=== PATIENT | female | born 1985 | race Caucasian/White ===

== ENCOUNTER 2020-07-25 21:46 | Emergency (ER) | payer SELFPAY ==
[2020-07-25 22:01] VITALS: BP 190/102; PULSE 71; RESP 18; TEMP 36.5; O2SAT 96; BMI 43.7
--- NOTE | 2020-07-25 22:25 | W.ED.DENTAL ---
HPI - Dental/Oral General: Chief complaint: Dental/Oral Stated complaint: Dental/Oral pain Time Seen by Provider: 07/25/20 22:18 History of Present Illness: HPI Narrative: Right upper molar longstanding history dental caries MD Complaint: tooth pain Teeth map: 1. Onset (ago): day(s) Duration: constant Severity: moderate Severity scale (1-10): 5 Relieving factors: nothing Context: history of dental caries Associated symptoms: Reports no associated symptoms; Denies fever(s) Review of Systems Narrative: No complaints of jaw problems Const: Denies: fever(s) or chills ENMT: Reports: other (Dental pain) Psych: Denies: anxiety or depression PFSH ED PFSH: Social History Smoking and tobacco status: current every day smoker Alcohol intake: never Physical Exam Const: COMMON NORMALS: no acute distress HENMT: TEETH & GINGIVA IMAGES: 1. Pain no swelling Psych: COMMON NORMALS: mental status grossly normal Course Vital Signs: Vital signs: Vital Signs Temperature 97.7 F 07/25/20 22:01 Pulse Rate 71 07/25/20 22:01 Respiratory Rate 18 07/25/20 22:01 Blood Pressure 190/102 07/25/20 22:01 Pulse Oximetry 96 07/25/20 22:01 Discharge Plan Discharge Patient Disposition: Home Clinical Impression: Toothache Condition: Stable Prescriptions: New Keflex 500 mg capsule 500 mg PO TID 7 Days Qty: 21 RF: 0 ibuprofen 600 mg tablet 600 mg PO QID PRN (Reason: pain) Qty: 20 RF: 0 No Action cephalexin [Keflex] 500 mg capsule 500 mg PO Q12H 10 Days Qty: 20 RF: 0 prednisone 20 mg tablet 20 mg PO DAILY 5 Days Qty: 10 RF: 0 methadone 10 mg tablet 5 mg PO ONCE RF: 0 ibuprofen 800 mg tablet 800 mg PO TID PRN (Reason: pain) Qty: 15 RF: 0 Discharge Orders: Discharge Order (Routine); Ordered 07/25/20 Ordered By: Thor Espino Referrals: , [Primary Care Provider] - Discharge Diet: Usual diet Discharge Activity: Increase activity as tolerated Patient Instructions: Dental Caries (ED) Activity Restrictions/Additional Instructions: Follow-up with medical provider as directed. Take medications as prescribed. Return to the ER or your medical provider if condition worsens. Please read and understand discharge instructions. If any questions ask please. Coding Level of Care Code ED Lead Database Administrator for Rodney Lagunas
[2020-07-25] MEDS: cephALEXin 500 mg Capsule PO (22:37)
[2020-07-25] MEDS: ibuprofen 600 mg Tablet PO (22:37)
== END 2020-07-25 22:40 | disposition home or self-care (01) ==
PROVIDERS: Emergency Provider Nurse Practitioner Family
DX: K08.89 Other specified disorders of teeth and supporting structures (principal); F17.210 Nicotine dependence, cigarettes, uncomplicated
CPT/HCPCS: 12345; 99282; 99283

== ENCOUNTER 2020-10-25 22:26 | Emergency (ER) | payer MEDICAID, SELFPAY ==
[2020-10-25 22:35] VITALS: BP 155/85; PULSE 78; RESP 18; TEMP 36.4; O2SAT 97; BMI 47.2
--- NOTE | 2020-10-25 23:42 | ECG_ITS ---
[facility] Test Date: 2020-10-25 Pat Name: Donita Ventura Department: Room: Gender: Female Densitometrist: : 1985 Requested By: Tulio Jaramillo Order Number: [id number] Morgan MD: Sheela Teran M.D. Measurements Intervals [place] Rate: 81 P: 32 UT: 150 QRS: 7 QRSD: 84 T: 8 QT: 311 QTc: 362 Interpretive Statements SINUS RHYTHM LOW QRS VOLTAGE IN PRECORDIAL LEADS [QRS DEFLECTION < 1.0 mV IN CHEST LEADS] POSSIBLE ANTERIOR MYOCARDIAL INFARCTION , PROBABLY OLD [30 ms Q WAVE IN V3/V4, OR R < 0.2 mV IN V4] Compared to ECG 07/14/2017 23:51:17 Sinus arrhythmia no longer present Myocardial infarct finding still present Electronically Signed On 10-26-2020 20:24:41 HONEYCOM[employer] DECAPPER by Sheela Teran M.D. [email or web address].[employer]/store/NU/[id number] f
[2020-10-25 23:56] VITALS: BP 171/74; PULSE 87; RESP 18; O2SAT 96
--- NOTE | 2020-10-25 23:57 | W.ED.ARRPALP ---
HPI - Arrhythmia/Palpitations General: Chief Complaint: Arrhythmia/Palpitations Stated Complaint: SOB, fluttering in chest, faint feeling Time Seen by Provider: 10/25/20 23:52 Source: patient Mode of arrival: ambulatory Limitations: no limitations History of Present Illness: HPI narrative: 35-year-old female states that starting today at 230 she has had episodes of feeling like she is having palpitations along with some shortness of breath. Patient states she felt dizzy did not pass out. She denies any chest pain. States she feels improved currently. She denies any worsening improving factors. No history of lung or heart issues. Associated symptoms: Deny nausea or vomiting Review of Systems Const: Denies: fever(s), chills, body aches or change in appetite Eyes: Denies: blurry vision or eye discomfort ENMT: Denies: throat pain or dental pain Card: Reports: palpitations; Denies: chest pain Resp: Reports: dyspnea GI: Denies: abdominal pain, nausea, vomiting or diarrhea : Denies: dysuria Musc: Denies: neck pain or back pain Skin/Breast: Denies: rash Neuro: Denies: headache(s) Psych: Denies: depression Soham/Lymph: Denies: easy bruising All/Imm: Denies: urticaria PFSH ED PFSH: Social History Smoking and tobacco status: current every day smoker Alcohol intake: never Female Reproductive History: Date of last menstrual period: 10/15/20 Physical Exam Const: COMMON NORMALS: no acute distress, patient oriented x3 and healthy appearing HENMT: COMMON NORMALS: normocephalic and atraumatic HEAD & SCALP: normocephalic and atraumatic Eye: COMMON NORMALS: Equal, round and reactive pupils present and EOMs intact bilaterally PUPIL: Yes Equal, round and reactive pupils present Neck/C-Spine: COMMON NORMALS: full ROM and supple Chest: COMMONS NORMALS: normal inspection of the chest and normal palpation of entire chest wall Resp: COMMON NORMALS: normal respiratory effort, No retractions, No use of accessory muscles and clear to auscultation bilaterally AUSCULTATION: clear to auscultation bilaterally Cardio: COMMON NORMALS: regular rate, regular rhythm and No murmurs present (Cardio) RATE: regular rate RHYTHM: regular rhythm GI: COMMON NORMALS: Normal to inspection, nondistended, normoactive bowel sounds present, Soft to palpation, non-tender and no masses PALPATION: Yes Soft to palpation Extremity: COMMON NORMALS: normal to inspection and full ROM Neuro: COMMON NORMALS: patient oriented x3, moves all extremities and no focal motor deficits Psych: COMMON NORMALS: mental status grossly normal, Normal thought process present and cooperative THOUGHT PROCESS: Normal thought process present Skin: COMMON NORMALS: no rashes or lesions noted and no wounds GENERAL SKIN EXAM: no rashes or lesions noted Course Vital Signs: Vital signs: Vital Signs Temperature 97.5 F L 10/25/20 22:35 Pulse Rate 71 10/26/20 02:30 Respiratory Rate 12 10/26/20 02:30 Blood Pressure 105/64 10/26/20 02:30 Pulse Oximetry 93 10/26/20 02:30 MDM - Arrhythmia/Palpitations MDM Narrative: Medical decision making narrative: Donita presents here with palpitations along with some intermittent dyspnea. She has been well-appearing here and asymptomatic. Patient's D-dimer is negative and no signs of pulmonary embolism. Her initial repeat troponins are negative. She states she has had a lot of stress anxiety and this could contribute. She is to follow-up with PCP in 2 to 4 days and return if worsening. She understands and agrees to plan. Lab Data: Labs: Lab Results 10/25/20 10/25/20 10/25/20 Range/Units 00:05 00:05 00:05 WBC 8.3 (4.0-10.0) 10^3/ uL RBC 4.92 (4.1-5.3) 10^6/u L Hgb 10.3 L (11.5-15.3) g/dL Hct 36.1 L (37.0-47.0) % MCV 73.4 L (81-99) fL MCH 20.9 L (28.0-34.0) pg MCHC 28.5 L (30.0-36.0) g/dL RDW 19.0 H (12.1-15.1) % Plt Count 360 (130-400) 10^3/c mm MPV 9.6 (7.4-10.4) fL Neut % (Auto) 65.1 % Lymph % (Auto) 20.7 % [place] % (Auto) 9.2 % Eos % (Auto) 4.0 % Baso % (Auto) 0.5 % Neut # (Auto) 5.37 (1.8-7.7) 10^3/u L Lymph # (Auto) 1.7 (0.8-4.8) 10^3/u L [place] # (Auto) 0.8 (0.2-0.9) 10^3/u L Eos # (Auto) 0.3 (0.0-0.8) 10^3/u L Baso # (Auto) 0.0 (0.0-0.1) 10^3/u L Nucleated RBC % (a uto) 0 % Nucleated RBCs # 0.0 /100WBC D-Dimer 0.37 (0-0.59) ug/mIFE U Sodium 138 (136-145) mmol/L Potassium 4.0 (3.5-5.1) mmol/L Chloride 100 (98-107) mmol/L Carbon Dioxide 29 (22-29) mmol/L Anion Gap 13.0 (5-19) BUN 9 (6-20) mg/dL Creatinine 0.5 (0.5-0.9) mg/dL GFR Calculation 139.6 H (90-130) mL/min Glucose 108 (65-115) mg/dL Calculated Osmolal ity 285 (285-295) mOsm/k g Calcium 8.9 (8.5-10.5) mg/dL Total Bilirubin 0.2 (0.15-1.2) mg/dL AST 13 (0-32) U/L ALT 19 (0-33) U/L Alkaline Phosphata se 78 (35-105) IU/L Troponin T Baselin e (0-10) ng/L Troponin T 120 Min [place] band (0-10) ng/L Delta Troponin T (0-10) ABS# Total Protein 6.9 (6.6-8.7) g/dL Albumin 3.6 (3.5-5.2) g/dL Globulin 3.3 (1.3-4.6) g/dL 10/25/20 10/26/20 Range/Units 00:05 01:55 WBC (4.0-10.0) 10^3/ uL RBC (4.1-5.3) 10^6/u L Hgb (11.5-15.3) g/dL Hct (37.0-47.0) % MCV (81-99) fL MCH (28.0-34.0) pg MCHC (30.0-36.0) g/dL RDW (12.1-15.1) % Plt Count (130-400) 10^3/c mm MPV (7.4-10.4) fL Neut % (Auto) % Lymph % (Auto) % [place] % (Auto) % Eos % (Auto) % Baso % (Auto) % Neut # (Auto) (1.8-7.7) 10^3/u L Lymph # (Auto) (0.8-4.8) 10^3/u L [place] # (Auto) (0.2-0.9) 10^3/u L Eos # (Auto) (0.0-0.8) 10^3/u L Baso # (Auto) (0.0-0.1) 10^3/u L Nucleated RBC % (a uto) % Nucleated RBCs # /100WBC D-Dimer (0-0.59) ug/mIFE U Sodium (136-145) mmol/L Potassium (3.5-5.1) mmol/L Chloride (98-107) mmol/L Carbon Dioxide (22-29) mmol/L Anion Gap (5-19) BUN (6-20) mg/dL Creatinine (0.5-0.9) mg/dL GFR Calculation (90-130) mL/min Glucose (65-115) mg/dL Calculated Osmolal ity (285-295) mOsm/k g Calcium (8.5-10.5) mg/dL Total Bilirubin (0.15-1.2) mg/dL AST (0-32) U/L ALT (0-33) U/L Alkaline Phosphata se (35-105) IU/L Troponin T Baselin e 13 H (0-10) ng/L Troponin T 120 Min [place] band 11.94 H (0-10) ng/L Delta Troponin T 1.06 (0-10) ABS# Total Protein (6.6-8.7) g/dL Albumin (3.5-5.2) g/dL Globulin (1.3-4.6) g/dL Imaging Data^: CXR: Attestation: I personally reviewed and interpreted this imaging study as follows: My impression: no acute abnormality EKG Data^: EKG 1: Attestation: I personally reviewed and interpreted this EKG as follows: EKG interpretation date: 10/26/20 EKG interpretation time: 23:56 Interpretation: nsr hr [address] or t wave abnormalities qrs 84 qtc 348 EKG 2: Attestation: I personally reviewed and interpreted this EKG as follows: EKG interpretation date: 10/26/20 EKG interpretation time: 02:22 Interpretation: nsr hr [address] or t wave abnormalities qrs 64 qtc 378 Discharge Plan Discharge Patient Disposition: Home Clinical Impression: Palpitations, Shortness of breath Condition: Stable Prescriptions: No Action cephalexin [Keflex] 500 mg capsule 500 mg PO Q12H 10 Days Qty: 20 RF: 0 prednisone 20 mg tablet 20 mg PO DAILY 5 Days Qty: 10 RF: 0 methadone 10 mg tablet 5 mg PO ONCE RF: 0 ibuprofen 800 mg tablet 800 mg PO TID PRN (Reason: pain) Qty: 15 RF: 0 ibuprofen 600 mg tablet 600 mg PO QID PRN (Reason: pain) Qty: 20 RF: 0 Discharge Orders: Discharge ED (Routine); Ordered 10/26/20 Ordered By: Tulio Jaramillo Discharge Diet: Advance as tolerated Discharge Activity: Resume usual activity Patient Instructions: Palpitations (ED) Coding Level of Care Code ED Medicine And Health Service Manager for Chg Fwd Exam Comprehensive
--- NOTE | 2020-10-26 | PC.NURSE ---
EKG done at 2355 and shown to ER doctor
[2020-10-26 00:12] VITALS: BP 115/65; PULSE 60; RESP 12; O2SAT 92
--- NOTE | 2020-10-26 00:21 | XR_ITS ---
WS: [id number] Portable AP upright chest, 10/26/2020 Clinical Data: cp Comparison: PA and lateral chest, 12/15/2015. Findings: No nodules, masses or effusions are seen. The heart is normal. The pulmonary vascularity is not increased. No pneumonia or pneumothorax is seen. XR/XR chest 1V portable [id number] Impression: Negative chest.
[2020-10-26 00:53] LABS: Basophils % 0.5 %; Eosinophils # 0.3 10^3/uL (0.0-0.8); Hematocrit 36.1 % (37.0-47.0); Hemoglobin 10.3 g/dL (11.5-15.3); Lymphocytes # 1.7 10^3/uL (0.8-4.8); Lymphocytes % 20.7 %; Mean Corpuscular HGB Conc 28.5 g/dL (30.0-36.0); Mean Corpuscular Hemoglobin 20.9 pg (28.0-34.0); Mean Corpuscular Volume 73.4 fL (81-99); Mean Platelet Volume 9.6 fL (7.4-10.4); Monocytes # 0.8 10^3/uL (0.2-0.9); Monocytes % 9.2 %; Neutrophils # 5.37 10^3/uL (1.8-7.7); Neutrophils % 65.1 %; Nucleated Red Blood Cells % 0 %; Platelet Count 360 10^3/cmm (130-400); Red Blood Count 4.92 10^6/uL (4.1-5.3); White Blood Count 8.3 10^3/uL (4.0-10.0)
--- NOTE | 2020-10-26 01:42 | ECG_ITS ---
[facility] Test Date: 2020-10-26 Pat Name: Donita Ventura Department: Room: Gender: Female General Ophthalmologist: : 1985 Requested By: Tulio Jaramillo Order Number: [id number] Morgan MD: Sheela Teran M.D. Measurements Intervals [place] Rate: 63 P: 39 ID: [id number] QRS: 10 QRSD: 64 T: 5 QT: 371 QTc: 381 Interpretive Statements SINUS RHYTHM LOW QRS VOLTAGE IN PRECORDIAL LEADS [QRS DEFLECTION < 1.0 mV IN CHEST LEADS] ANTEROSEPTAL MYOCARDIAL INFARCTION , PROBABLY OLD [40+ ms Q WAVE IN V1-V4] Compared to ECG 07/14/2017 23:51:17 Sinus arrhythmia no longer present Myocardial infarct finding still present Electronically Signed On 10-26-2020 20:30:24 CAR SALESPERSON by Sheela Teran M.D. [id number]
[2020-10-26 01:46] LABS: Troponin(5th) Baseline 13 ng/L (0-10)
[2020-10-26 01:47] LABS: Alanine Aminotransferase 19 U/L (0-33); Albumin Level 3.6 g/dL (3.5-5.2); Alkaline Phosphatase 78 IU/L (35-105); Aspartate Amino Transferase 13 U/L (0-32); Blood Urea Nitrogen 9 mg/dL (6-20); Calcium 8.9 mg/dL (8.5-10.5); Carbon Dioxide 29 mmol/L (22-29); Chloride 100 mmol/L (98-107); Globulin 3.3 g/dL (1.3-4.6); Glomerular Filtration Rate 139.6 mL/min (90-130); Glucose 108 mg/dL (65-115); Osmolality Calculated 285 mOsm/kg (285-295); Sodium 138 mmol/L (136-145); Total Bilirubin 0.2 mg/dL (0.15-1.2); Total Protein 6.9 g/dL (6.6-8.7)
[2020-10-26 02:30] VITALS: BP 105/64; PULSE 71; RESP 12; O2SAT 93
[2020-10-26 02:30] LABS: Troponin 5 2HR 11.94 ng/L (0-10)
[2020-10-26 02:41] LABS: Troponin 5 2HR Delta 1.06 ABS# (0-10)
[2020-10-26 03:02] LABS: D Dimer 0.37 ug/mIFEU (0-0.59)
[2020-10-26 03:34] VITALS: BP 113/57; PULSE 65; RESP 16; O2SAT 98
== END 2020-10-26 03:35 | disposition home or self-care (01) ==
PROVIDERS: Emergency Provider Emergency Medicine
DX: R00.2 Palpitations (principal); R06.02 Shortness of breath; F17.210 Nicotine dependence, cigarettes, uncomplicated
CPT/HCPCS: 12345; 36415; 71045; 80053; 84484; 85025; 85378; 93005; 99282; 99283

== ENCOUNTER 2020-11-18 08:15 | Emergency (ER) | payer MEDICAID, SELFPAY ==
[2020-11-18 08:21] VITALS: BP 155/104; PULSE 81; RESP 18; TEMP 36.9; O2SAT 100; BMI 46.3
--- NOTE | 2020-11-18 08:39 | W.ED.PREGNAN ---
Documented by User: Gómez Patel DO 11/24/20 06:16 HPI - General: Chief complaint: Urogenital-Female Stated complaint: POSS MISCARRIAGE Time Seen by Provider: 11/18/20 08:16 History of Present Illness: HPI Narrative: 35-year-old female comes in complaining of some vaginal spotting. She had a test yesterday that was positive patient previously had a first trimester miscarriage. She has not had any dysuria urgency or frequency. She does not have any active bleeding. MD Complaint: vaginal bleeding Onset (ago): hour(s) Severity: mild Relieving factors: none Exacerbating factors: none Vaginal bleeding: light Date of Last Menstrual Period: 10/15/20 Associated symptoms: Reports vaginal bleeding; Deny abdominal pain, dyspareunia, dysuria, headache(s), malaise, nausea, rash, seizures, short of breath, syncope, vaginal discharge, visual changes, vomiting or weakness Review of Systems Const: Denies: malaise ENMT: Denies: throat pain, ear or mastoid pain, nasal discharge or nasal congestion Card: Denies: syncope Resp: Denies: dyspnea, productive cough or non-productive cough GI: Denies: abdominal pain, nausea or vomiting : Denies: dysuria, vaginal discharge or dyspareunia Skin/Breast: Denies: rash or pruritus Neuro: Denies: headache(s) PFSH ED PFSH: Family History Father CAD (coronary artery disease) Breast cancer Clotting disorder Diabetes Hyperlipidemia Hypertension Stroke Mother Cancer lung cancer Family/Other Family history of thyroid problem paternal aunt Denies family history of Ovarian cyst Chronic kidney disease (CKD) Anesthesia complication Bleeding disorder Social History Smoking and tobacco status: current every day smoker Alcohol intake: never Female Reproductive History: Date of last menstrual period: 10/15/20 Physical Exam Const: COMMON NORMALS: no acute distress GENERAL APPEARANCE: cooperative and comfortable ORIENTATION/CONSCIOUSNESS: Yes awake, Yes oriented to person, Yes oriented to place and Yes oriented to time HENMT: COMMON NORMALS: normocephalic, atraumatic and hearing grossly normal bilaterally HEAD & SCALP: normocephalic and atraumatic Neck/C-Spine: COMMON NORMALS: no JVD Resp: COMMON NORMALS: normal respiratory effort, No retractions, No use of accessory muscles and clear to auscultation bilaterally AUSCULTATION: clear to auscultation bilaterally Cardio: COMMON NORMALS: no JVD, regular rate, regular rhythm and No murmurs present (Cardio) RATE: regular rate RHYTHM: regular rhythm GI: COMMON NORMALS: Soft to palpation and No hepatosplenomegaly present AUSCULTATION: Yes normoactive bowel sounds PALPATION: Yes Soft to palpation, No Tenderness to palpation present (GI), No Guarding due to palpation present (GI) and Yes No hepatosplenomegaly present : SPECULUM EXAM - VAGINA: Yes vaginal bleeding OB/EXTERNAL & SPECULUM: vaginal bleeding Extremity: COMMON NORMALS: normal to inspection, capillary refill normal, no clubbing, cyanosis or edema, no calf tenderness and no pedal edema Neuro: SENSORIUM/ORIENTATION: Yes oriented to person, Yes oriented to place and Yes oriented to time Skin: COMMON NORMALS: no rashes or lesions noted GENERAL SKIN EXAM: no rashes or lesions noted Course Vital Signs: Vital signs: Vital Signs Temperature 98.4 F 11/18/20 08:21 Pulse Rate 81 11/18/20 08:21 Respiratory Rate 18 11/18/20 08:21 Blood Pressure 155/104 11/18/20 08:21 Pulse Oximetry 100 11/18/20 08:21 MDM - OB/Uterine Contractions MDM Narrative: Medical decision making narrative: Beta-hCG 9000. Patient is only having intermittent bleeding no pain. We will have her follow-up later this week for repeat beta-hCG if she has any worsening or change of symptoms or develops any pelvic pain return to the emergency room immediately. Lab Data: Labs: Lab Results 11/18/20 11/18/20 11/18/20 Range/Units 09:54 09:54 09:54 WBC 9.0 (4.0-10.0) 10^3/ uL RBC 4.67 (4.1-5.3) 10^6/u L Hgb 9.8 L (11.5-15.3) g/dL Hct 33.7 L (37.0-47.0) % MCV 72.2 L (81-99) fL MCH 21.0 L (28.0-34.0) pg MCHC 29.1 L (30.0-36.0) g/dL RDW 19.0 H (12.1-15.1) % Plt Count 429 H (130-400) 10^3/c mm MPV 9.2 (7.4-10.4) fL Neut % (Auto) 69.1 % Lymph % (Auto) 18.3 % [place] % (Auto) 7.3 % Eos % (Auto) 3.9 % Baso % (Auto) 0.6 % Neut # (Auto) 6.26 (1.8-7.7) 10^3/u L Lymph # (Auto) 1.7 (0.8-4.8) 10^3/u L [place] # (Auto) 0.7 (0.2-0.9) 10^3/u L Eos # (Auto) 0.4 (0.0-0.8) 10^3/u L Baso # (Auto) 0.1 (0.0-0.1) 10^3/u L Nucleated RBC % (a uto) 0 % Nucleated RBCs # 0.0 /100WBC Sodium 136 (136-145) mmol/L Potassium 4.0 (3.5-5.1) mmol/L Chloride 100 (98-107) mmol/L Carbon Dioxide 25 (22-29) mmol/L Anion Gap 15.0 (5-19) BUN 8 (6-20) mg/dL Creatinine 0.6 (0.5-0.9) mg/dL GFR Calculation 113.1 (90-130) mL/min Glucose 139 H (65-115) mg/dL Calculated Osmolal ity 283 L (285-295) mOsm/k g Calcium 9.0 (8.5-10.5) mg/dL Ser , Enmanuel i-Qnt 9167.00 mIU/mL Blood Type O Positive Rho(D) Type Positive Discharge Plan Discharge Patient Disposition: Home Clinical Impression: Threatened miscarriage in early Condition: Stable Prescriptions: No Action methadone 40 mg tablet,soluble 155 mg PO DAILY RF: 0 Discharge Orders: Discharge ED (Routine); Ordered 11/18/20 Ordered By: Gómez Patel Discharge Diet: Usual diet Discharge Activity: Resume usual activity Patient Instructions: Opioid Safety Activity Restrictions/Additional Instructions: With your primary care doctor for repeat blood work in 3 to 4 days. Coding Level of Care Code ED Vegetable I Farmworker for Chg Fwd Exam Problem Focused Documented by User: [email or web address] Monzon 11/18/20 18:13 HPI - General: Chief complaint: Urogenital-Female Stated complaint: POSS MISCARRIAGE Time Seen by Provider: 11/18/20 08:16 History of Present Illness: Associated symptoms: Deny vaginal bleeding PFSH ED PFSH: Family History Father CAD (coronary artery disease) Breast cancer Clotting disorder Diabetes Hyperlipidemia Hypertension Stroke Mother Cancer lung cancer Family/Other Family history of thyroid problem paternal aunt Denies family history of Ovarian cyst Chronic kidney disease (CKD) Anesthesia complication Bleeding disorder Social History Smoking and tobacco status: current every day smoker Alcohol intake: never Physical Exam : COMMON NORMALS: Yes normal external appearance, Yes normal appearance of the vagina and Yes No adnexal tenderness BLADDER/KIDNEY EXAM: Yes bladder normal to palpation EXTERNAL FEMALE EXAM: Yes normal appearance of the urethra, No Inguinal lymphadenopathy, No externally tender, No external swelling and No laceration SPECULUM EXAM - VAGINA: No foreign body, No vaginal bleeding, No tissue present in vagina and No Vaginal discharge present SPECULUM EXAM - CERVIX: Yes Cervical os open (with mucoid discharge/brown discoloration, not tissue), Yes Cervical bleeding (scant, dark brown), No Cervical lesion present and Yes Cervical tenderness present BIMANUAL EXAM - VAGINA & UTERUS: Yes Cervical tenderness present, Yes bladder normal to palpation, Yes uterine size normal, Yes consistency normal and Yes non-tender BIMANUAL EXAM - ADNEXA, OTHER: Yes normal adnexae and Yes mobile OB/EXTERNAL & SPECULUM: Cervical os open (with mucoid discharge/brown discoloration, not tissue); no foreign bodies, no tissue noted in vagina and vaginal bleeding Course Vital Signs: Vital signs: Vital Signs Temperature 98.4 F 11/18/20 08:21 Pulse Rate 81 11/18/20 08:21 Respiratory Rate 18 11/18/20 08:21 Blood Pressure 155/104 11/18/20 08:21 Pulse Oximetry 100 11/18/20 08:21 MDM - OB/Uterine Contractions Lab Data: Labs: Lab Results 11/18/20 11/18/20 11/18/20 Range/Units 09:54 09:54 09:54 WBC 9.0 (4.0-10.0) 10^3/ uL RBC 4.67 (4.1-5.3) 10^6/u L Hgb 9.8 L (11.5-15.3) g/dL Hct 33.7 L (37.0-47.0) % MCV 72.2 L (81-99) fL MCH 21.0 L (28.0-34.0) pg MCHC 29.1 L (30.0-36.0) g/dL RDW 19.0 H (12.1-15.1) % Plt Count 429 H (130-400) 10^3/c mm MPV 9.2 (7.4-10.4) fL Neut % (Auto) 69.1 % Lymph % (Auto) 18.3 % [place] % (Auto) 7.3 % Eos % (Auto) 3.9 % Baso % (Auto) 0.6 % Neut # (Auto) 6.26 (1.8-7.7) 10^3/u L Lymph # (Auto) 1.7 (0.8-4.8) 10^3/u L [place] # (Auto) 0.7 (0.2-0.9) 10^3/u L Eos # (Auto) 0.4 (0.0-0.8) 10^3/u L Baso # (Auto) 0.1 (0.0-0.1) 10^3/u L Nucleated RBC % (a uto) 0 % Nucleated RBCs # 0.0 /100WBC Sodium 136 (136-145) mmol/L Potassium 4.0 (3.5-5.1) mmol/L Chloride 100 (98-107) mmol/L Carbon Dioxide 25 (22-29) mmol/L Anion Gap 15.0 (5-19) BUN 8 (6-20) mg/dL Creatinine 0.6 (0.5-0.9) mg/dL GFR Calculation 113.1 (90-130) mL/min Glucose 139 H (65-115) mg/dL Calculated Osmolal ity 283 L (285-295) mOsm/k g Calcium 9.0 (8.5-10.5) mg/dL Ser , Enmanuel i-Qnt 9167.00 mIU/mL Blood Type O Positive Rho(D) Type Positive Discharge Plan Discharge Patient Disposition: Home Clinical Impression: Threatened miscarriage in early Condition: Stable Prescriptions: No Action methadone 40 mg tablet,soluble 155 mg PO DAILY RF: 0 Discharge Orders: Discharge ED (Routine); Ordered 11/18/20 Ordered By: Gómez Patel Discharge Diet: Usual diet Discharge Activity: Resume usual activity Patient Instructions: Opioid Safety Activity Restrictions/Additional Instructions: With your primary care doctor for repeat blood work in 3 to 4 days. Coding Level of Care Code ED Vegetable I Farmworker for Rodney Lagunas Exam Problem Focused
[2020-11-18 10:10] LABS: Basophils # 0.1 10^3/uL (0.0-0.1); Basophils % 0.6 %; Eosinophils # 0.4 10^3/uL (0.0-0.8); Eosinophils % 3.9 %; Hematocrit 33.7 % (37.0-47.0); Hemoglobin 9.8 g/dL (11.5-15.3); Lymphocytes # 1.7 10^3/uL (0.8-4.8); Lymphocytes % 18.3 %; Mean Corpuscular HGB Conc 29.1 g/dL (30.0-36.0); Mean Corpuscular Volume 72.2 fL (81-99); Mean Platelet Volume 9.2 fL (7.4-10.4); Monocytes # 0.7 10^3/uL (0.2-0.9); Monocytes % 7.3 %; Neutrophils # 6.26 10^3/uL (1.8-7.7); Neutrophils % 69.1 %; Nucleated Red Blood Cells % 0 %; Platelet Count 429 10^3/cmm (130-400); Red Blood Count 4.67 10^6/uL (4.1-5.3)
[2020-11-18 10:57] LABS: Blood Urea Nitrogen 8 mg/dL (6-20); Carbon Dioxide 25 mmol/L (22-29); Chloride 100 mmol/L (98-107); Glomerular Filtration Rate 113.1 mL/min (90-130); Glucose 139 mg/dL (65-115); Osmolality Calculated 283 mOsm/kg (285-295); Sodium 136 mmol/L (136-145)
--- NOTE | 2020-11-20 09:43 | DCPLANNER ---
policy manager had message to schedule a follow up appointment for patient with [facility]. policy manager called [facility], spoke with Latesha, gave clinic patients information. policy manager was told that patients information would be printed and reviewed. Clinic will call patient with appointment information.
--- NOTE | 2020-11-22 13:52 | DCPLANNER ---
Patient has a follow up appointment scheduled for Sunday, November 22, 2020 at 2:[address] Antoine. Clinic will call patient with appointment information.
--- NOTE | 2020-11-29 15:19 | DCPLANNER ---
Patient had a follow up appointment scheduled for 11.22.20 with [facility] - patient did attend appointment.
== END 2020-11-18 11:55 | disposition home or self-care (01) ==
PROVIDERS: Emergency Provider Family Medicine
DX: O20.0 Threatened abortion (principal); O99.331 Smoking (tobacco) complicating pregnancy, first trimester; F17.210 Nicotine dependence, cigarettes, uncomplicated; Z3A.00 Weeks of gestation of pregnancy not specified
CPT/HCPCS: 36415; 80048; 84702; 85025; 86900; 87210; 87491; 87591; 99283; E0352

== ENCOUNTER 2020-12-12 19:40 | Emergency (ER) | payer MEDICAID, SELFPAY ==
[2020-12-12 20:02] VITALS: BP 145/88; PULSE 72; RESP 24; TEMP 36.7; O2SAT 94; BMI 43.7
--- NOTE | 2020-12-12 22:05 | XR_ITS ---
WS: [id number] Exam: XR chest 1V portable [id number] Date/Time of Exam: 12/12/2020 10:12 PM Reason For Exam: wheezing Comparison 10/26/2020. Findings: The lungs are clear and fully expanded. Costophrenic angles are sharp. No infiltrates. Bronchovascula r relief appears normal. Cardiac silhouette is unremarkable. Bony elements are intact. XR/XR chest 1V portable [id number] IMPRESSION: Unremarkable chest radiograph.
--- NOTE | 2020-12-12 22:05 | USCV_ITS ---
Donita Ventura Age: 35 Gender: F : 1985 Exam Date: 12/12/2020 23:16 Ordering Phys: Al Kim Technologist: [place] [facility] [place]: RT LEG PAIN AND SWELLING HISTORY: Lower extremity edema. PROCEDURES: Venous duplex imaging was performed in only the right lower extremity. The following venous structures were evaluated: common femoral vein, profunda vein, proximal portion of the greater saphenous vein, superficial femoral vein, and the popliteal vein. In addition, the posterior tibial and peroneal trunk were evaluated. FINDINGS: Normal 2-D Doppler and augmentation and compressibility throughout the lower extremity venous structures. Additional imaging through the proximal calf veins also reveals no thrombus. Limited evaluation of the greater saphenous vein is patent with no thrombus. CONCLUSIONS No DVT right lower extremity. Dr. Lakesha Dawkins DO (Electronically Signed) Final Date: 13 December 2020 10:04 S
--- NOTE | 2020-12-12 22:10 | W.ED.EXTPRO ---
HPI - Extremity Problem General: Chief complaint: Extremity Problem,Nontraumatic Stated complaint: suspects blood clot, SOB, vericose veins Time Seen by Provider: 12/12/20 21:46 History of Present Illness: HPI Narrative: Patient is a 35-year-old female who is 9 weeks comes to the ED with right calf pain. Denies any trauma or injury to cause pain. Patient also complained of having some shortness of breath and wheezing but does admit to being tobacco smoker. Denies any history of DVT or blood clots. Denies chest pain, hemoptysis. Associated symptoms: Deny chest pain, fever(s) or rash Review of Systems Const: Denies: fever(s), chills or fatigue Eyes: Denies: change in vision or eye discomfort ENMT: Denies: throat pain, odynophagia, nasal discharge or nasal congestion Card: Denies: chest pain, palpitations, edema, swelling of feet/ankles, dyspnea on exertion or orthopnea Resp: Reports: dyspnea and wheezing; Denies: productive cough or non-productive cough GI: Denies: abdominal pain, nausea, vomiting, diarrhea, constipation or hematochezia : Denies: flank pain, dysuria or hematuria Musc: Reports: extremity pain (Right calf pain); Denies: neck pain, back pain or extremity swelling Skin/Breast: Denies: rash or new lesions Neuro: Denies: headache(s), numbness in extremities or weakness in extremities [facility] ED PFSH: Medical History 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; patient at [facility] Degenerative disc disease No pertinent past medical history neghx: htn,dm,thyroid,dvt/pe PCP: None Rheumatoid arthritis only using otc relievers Surgical History No pertinent past surgical history Family History Father Breast cancer dx age unknown Diabetes Hyperlipidemia Hypertension Stroke Mother Cancer lung cancer Family/Other Family history of thyroid problem paternal aunt Denies family history of Colon cancer Ovarian cancer Heart disease Uterine cancer Thyroid disease Social History Smoking and tobacco status: current every day smoker Alcohol intake: never Female Reproductive History: Date of last menstrual period: 10/15/20 Physical Exam Const: COMMON NORMALS: no acute distress, patient oriented x3 and alert GENERAL APPEARANCE: cooperative and comfortable NUTRITIONAL APPEARANCE: obese HENMT: COMMON NORMALS: normocephalic HEAD & SCALP: normocephalic MOUTH: Normal oral and palatal mucosa present THROAT: posterior oropharynx normal and uvula midline Neck/C-Spine: COMMON NORMALS: supple GENERAL: Yes normal visual inspection Resp: COMMON NORMALS: normal respiratory effort, No retractions and No use of accessory muscles AUSCULTATION: wheezes (Mild expiratory wheezing throughout lungs bilaterally) expiratory wheezes and throughout Cardio: COMMON NORMALS: regular rate, regular rhythm, S1 normal heart sound present, S2 normal heart sound present, No gallops present (Cardio), No clicks present (Cardio), No murmurs present (Cardio) and Peripheral pulses 2+ throughout RATE: regular rate RHYTHM: regular rhythm HEART SOUNDS: S1 normal heart sound present and S2 normal heart sound present PERIPHERAL PULSES: Peripheral pulses 2+ throughout GI: COMMON NORMALS: Normal to inspection, nondistended, normoactive bowel sounds present, Soft to palpation, non-tender and no masses PALPATION: Yes Soft to palpation : COMMON NORMALS: Yes no CVA tenderness BLADDER/KIDNEY EXAM: Yes no CVA tenderness Back/Pelvis: COMMON NORMALS: no CVA tenderness Extremity: COMMON NORMALS: no pedal edema GENERAL: Yes normal exam except as noted and Yes calf tenderness (Right calf) Neuro: COMMON NORMALS: patient oriented x3 and moves all extremities SENSORIUM/ORIENTATION: Yes alert Skin: GENERAL SKIN EXAM: dry skin Course Reevaluation(s): Reevaluation #1: I will listen to patient's lungs after albuterol breathing treatment. Wheezing greatly improved throughout lungs after breathing treatment. Patient says her breathing has proved greatly after breathing treatment she says she has no more wheezing or shortness of breath. Vital Signs: Vital signs: Vital Signs Temperature 98.0 F 12/13/20 00:18 Pulse Rate 65 12/13/20 00:18 Respiratory Rate 18 12/13/20 00:18 Blood Pressure 118/72 12/13/20 00:18 Pulse Oximetry 65 L 12/13/20 00:18 MDM - Extremity (Nontraumatic) MDM Narrative: Medical decision making narrative: Patient is a 35-year-old female who is 9 weeks and comes to the ED with right calf pain that is nontraumatic and some wheezing and shortness of breath. Patient is a tobacco smoker. Denies any chest pain, hemoptysis, DVT history. Exam showed some wheezing throughout her lungs bilaterally on auscultation. She also had some right calf tenderness upon palpation. CBC and CMP were unremarkable. UA was unremarkable as well. Chest x-ray showed no acute findings. Ultrasound venous duplex of the right lower extremity showed no DVTs or blood clots seen. Patient was given albuterol breathing treatment here in the ED and her wheezing and breathing greatly improved. Patient diagnosed with right calf pain and bilateral wheezing and discharged home. She has follow-up with her OB doctor next week. I told patient to talk with her OB doctor about potentially starting her on albuterol breathing treatments as needed for wheezing. Return to ED precautions given. Take Tylenol for pain. Patient understood agree with plan. Lab Data: Attestation: I reviewed the patient's lab results. Labs: Lab Results 12/12/20 12/12/20 12/12/20 Range/Units 22:04 22:04 22:40 WBC 11.9 H (4.0-10.0) 10^3/ uL RBC 5.18 (4.1-5.3) 10^6/u L Hgb 11.0 L (11.5-15.3) g/dL Hct 37.3 (37.0-47.0) % MCV 72.0 L (81-99) fL MCH 21.2 L (28.0-34.0) pg MCHC 29.5 L (30.0-36.0) g/dL RDW 19.4 H (12.1-15.1) % Plt Count 361 (130-400) 10^3/c mm MPV 10.0 (7.4-10.4) fL Neut % (Auto) 76.0 % Lymph % (Auto) 14.7 % Pratt % (Auto) 6.9 % Eos % (Auto) 1.7 % Baso % (Auto) 0.3 % Neut # (Auto) 9.04 H (1.8-7.7) 10^3/u L Lymph # (Auto) 1.8 (0.8-4.8) 10^3/u L Pratt # (Auto) 0.8 (0.2-0.9) 10^3/u L Eos # (Auto) 0.2 (0.0-0.8) 10^3/u L Baso # (Auto) 0.0 (0.0-0.1) 10^3/u L Nucleated RBC % (a uto) 0 % Nucleated RBCs # 0.0 /100WBC Sodium 134 L (136-145) mmol/L Potassium 3.7 (3.5-5.1) mmol/L Chloride 101 (98-107) mmol/L Carbon Dioxide 24 (22-29) mmol/L Anion Gap 12.7 (5-19) BUN 5 L (6-20) mg/dL Creatinine 0.4 L (0.5-0.9) mg/dL GFR Calculation 180.6 H (90-130) mL/min Glucose 91 (65-115) mg/dL Calculated Osmolal ity 275 L (285-295) mOsm/k g Calcium 9.1 (8.5-10.5) mg/dL Total Bilirubin 0.2 (0.15-1.2) mg/dL AST 8 (0-32) U/L ALT 10 (0-33) U/L Alkaline Phosphata se 73 (35-105) IU/L Total Protein 7.2 (6.6-8.7) g/dL Albumin 3.6 (3.5-5.2) g/dL Globulin 3.6 (1.3-4.6) g/dL Urine Color Yellow (Yellow) Urine Appearance Clear (CLEAR) Urine pH 6.5 (5-7) Ur Specific Gravit y 1.005 (1.005-1.030) Urine Protein Neg (Negative) Urine Glucose (UA) Norm (Normal) Urine Ketones Negative (Negative) Urine Blood Neg (Negative) Urine Nitrate Negative (Negative) Urine Bilirubin Neg (Negative) Urine Urobilinogen Norm (Negative) mg/dL Ur Leukocyte Caroline ase Trace H (Negative) Urine RBC 0-4 H (0-2) /hpf Urine WBC 5-10 H (0-5) /hpf Ur Squamous Epith Cells 0-4 H (0-5) /hpf Amorphous Sediment Not Reportable Urine Bacteria Trace (NONE) /hpf Imaging Data^: CXR: Attestation: I personally reviewed and interpreted this imaging study as follows: My impression: No acute findings on chest x-ray. US Vascular: Attestation: I personally reviewed and interpreted this imaging study as follows: Radiologist's impression: Ultrasound venous duplex of right lower extremity?no DVT or blood clots seen. Discharge Plan Discharge Patient Disposition: Home Clinical Impression: Right calf pain, Bilateral wheezing Condition: Stable Prescriptions: No Action methadone 40 mg tablet,soluble 155 mg PO DAILY RF: 0 Gummy 400 mcg-35 mg -25 mg-5 mg tablet,chewable PO DAILY RF: 0 ferrous sulfate 325 mg (65 mg iron) tablet,delayed release (DR/EC) 325 mg PO BID Qty: 60 RF: 0 Discharge Orders: Discharge ED (Routine); Ordered 12/12/20 Ordered By: Al Kim Discharge Diet: Regular Discharge Activity: Increase activity as tolerated Patient Instructions: Musculoskeletal Pain (ED) Activity Restrictions/Additional Instructions: Follow-up with your medical provider at next scheduled appointment next week. Discuss with your OB doctor about possibly getting on an albuterol inhaler for wheezing as needed. Take Tylenol for pain. Make sure you are drinking plenty of fluids and staying hydrated. Stretch right calf muscle daily to help with symptoms. You can also apply cold pack on right calf to help with symptoms as well. Return to the ER or your medical provider if condition worsens. Please read and understand discharge instructions. If any questions, please ask. Coding Level of Care Code ED Agile Test Lead for Rodney Fwd Exam Comprehensive
[2020-12-12 22:14] LABS: Basophils % 0.3 %; Eosinophils # 0.2 10^3/uL (0.0-0.8); Eosinophils % 1.7 %; Hematocrit 37.3 % (37.0-47.0); Lymphocytes # 1.8 10^3/uL (0.8-4.8); Lymphocytes % 14.7 %; Mean Corpuscular HGB Conc 29.5 g/dL (30.0-36.0); Mean Corpuscular Hemoglobin 21.2 pg (28.0-34.0); Monocytes # 0.8 10^3/uL (0.2-0.9); Monocytes % 6.9 %; Neutrophils # 9.04 10^3/uL (1.8-7.7); Nucleated Red Blood Cells % 0 %; Platelet Count 361 10^3/cmm (130-400); Red Blood Count 5.18 10^6/uL (4.1-5.3); Red Cell Distribution Width 19.4 % (12.1-15.1); White Blood Count 11.9 10^3/uL (4.0-10.0)
[2020-12-12 22:28] LABS: Alanine Aminotransferase 10 U/L (0-33); Albumin Level 3.6 g/dL (3.5-5.2); Alkaline Phosphatase 73 IU/L (35-105); Anion Gap 12.7 (5-19); Aspartate Amino Transferase 8 U/L (0-32); Blood Urea Nitrogen 5 mg/dL (6-20); Calcium 9.1 mg/dL (8.5-10.5); Carbon Dioxide 24 mmol/L (22-29); Chloride 101 mmol/L (98-107); Globulin 3.6 g/dL (1.3-4.6); Glomerular Filtration Rate 180.6 mL/min (90-130); Glucose 91 mg/dL (65-115); Osmolality Calculated 275 mOsm/kg (285-295); Potassium 3.7 mmol/L (3.5-5.1); Sodium 134 mmol/L (136-145); Total Bilirubin 0.2 mg/dL (0.15-1.2); Total Protein 7.2 g/dL (6.6-8.7)
[2020-12-12 22:46] VITALS: BP 129/88; PULSE 70; PULSE 71; RESP 18; O2SAT 96
[2020-12-12 22:56] LABS: Bilirubin Urine Neg (Negative); Blood Urine Neg (Negative); Glucose Urine UA Norm (Normal); Ketones Urine Negative (Negative); Leukocyte Esterase Urine Trace (Negative); Nitrate Urine Negative (Negative); Protein Urine Neg (Negative); Specific Gravity, Urine 1.005 (1.005-1.030); Urine Appearance Clear (CLEAR); Urine Color Yellow (Yellow); Urobilinogen Urine Norm (Negative); pH Urine 6.5 (5-7)
[2020-12-12 22:57] LABS: Add Urine Culture? No; Bacteria Urine TRACE /hpf; RBC Urine 0-4 /hpf (0-2); Squamous Epithelial Cell Urine 0-4 /hpf (0-5)
[2020-12-12 23:00] VITALS: PULSE 69; RESP 18; O2SAT 96
[2020-12-12 23:07] VITALS: PULSE 71
[2020-12-13 00:18] VITALS: BP 118/72; PULSE 65; RESP 18; TEMP 36.7; O2SAT 65
== END 2020-12-13 00:20 | disposition home or self-care (01) ==
PROVIDERS: Emergency Provider Physician Assistant
DX: M79.18 Myalgia, other site (principal); R06.2 Wheezing; O26.891 Other specified pregnancy related conditions, first trimester; O99.331 Smoking (tobacco) complicating pregnancy, first trimester; F17.210 Nicotine dependence, cigarettes, uncomplicated; Z3A.09 9 weeks gestation of pregnancy
CPT/HCPCS: 71045; 80053; 81001; 85025; 93971; 94640; 99284; J7611

== ENCOUNTER → 2020-12-27 11:10 | Outpatient (BNVA) | payer BC, SELFPAY | PROVIDERS: Visit Provider Obstetrics & Gynecology | DX: O09.529 Supervision of elderly multigravida, unspecified trimester (principal); D63.8 Anemia in other chronic diseases classified elsewhere; O21.9 Vomiting of pregnancy, unspecified; O99.330 Smoking (tobacco) complicating pregnancy, unspecified trimester; O99.210 Obesity complicating pregnancy, unspecified trimester; O20.9 Hemorrhage in early pregnancy, unspecified | CPT/HCPCS: 80307; 82950; 83540; 84315; 86592; 86762; 86803; 87086; 87340; 87491; 87591 ==

== ENCOUNTER → 2021-01-10 15:16 | Outpatient (BNVA) | payer BC, MEDICAID, SELFPAY | PROVIDERS: Visit Provider Obstetrics & Gynecology | DX: O09.899 Supervision of other high risk pregnancies, unspecified trimester (principal); Z12.4 Encounter for screening for malignant neoplasm of cervix | CPT/HCPCS: 81000; 86850; 86900; 87491; 87591; 88175 ==

== ENCOUNTER → 2021-01-11 12:12 | Outpatient (BNVA) | payer BC, MEDICAID, SELFPAY | PROVIDERS: Visit Provider Obstetrics & Gynecology | DX: O09.899 Supervision of other high risk pregnancies, unspecified trimester (principal) | CPT/HCPCS: 87086 ==

== ENCOUNTER → 2021-01-15 09:12 | Outpatient (BNVA) | payer BC, MEDICAID, SELFPAY | PROVIDERS: Visit Provider Obstetrics & Gynecology | DX: R73.09 Other abnormal glucose (principal) | CPT/HCPCS: 82951; 82952 ==

== ENCOUNTER → 2021-01-31 16:58 | Outpatient (BNVA) | payer BC, MEDICAID, SELFPAY | PROVIDERS: Visit Provider Nurse Practitioner Women's Health | DX: O99.212 Obesity complicating pregnancy, second trimester (principal); D63.8 Anemia in other chronic diseases classified elsewhere; O99.332 Smoking (tobacco) complicating pregnancy, second trimester; O21.9 Vomiting of pregnancy, unspecified; Z79.899 Other long term (current) drug therapy; O09.522 Supervision of elderly multigravida, second trimester; O09.899 Supervision of other high risk pregnancies, unspecified trimester; O09.299 Supervision of pregnancy with other poor reproductive or obstetric history, unspecified trimester | CPT/HCPCS: 81000; 82728; 83550; 84466 ==

== ENCOUNTER → 2021-03-05 13:33 | Outpatient (BNVA) | payer BC, MEDICAID, SELFPAY | PROVIDERS: Visit Provider Obstetrics & Gynecology | DX: O99.212 Obesity complicating pregnancy, second trimester (principal); O99.332 Smoking (tobacco) complicating pregnancy, second trimester; O21.9 Vomiting of pregnancy, unspecified; Z79.899 Other long term (current) drug therapy; D63.8 Anemia in other chronic diseases classified elsewhere; O09.522 Supervision of elderly multigravida, second trimester; O09.299 Supervision of pregnancy with other poor reproductive or obstetric history, unspecified trimester; Z3A.00 Weeks of gestation of pregnancy not specified | CPT/HCPCS: 81000 ==

== ENCOUNTER → 2021-03-27 14:40 | Outpatient (BNVA) | payer BC, MEDICAID, SELFPAY | PROVIDERS: Visit Provider Nurse Practitioner Women's Health | DX: O99.212 Obesity complicating pregnancy, second trimester (principal); E66.9 Obesity, unspecified; O99.332 Smoking (tobacco) complicating pregnancy, second trimester; F17.200 Nicotine dependence, unspecified, uncomplicated; O21.9 Vomiting of pregnancy, unspecified; Z79.899 Other long term (current) drug therapy; D63.8 Anemia in other chronic diseases classified elsewhere; O09.522 Supervision of elderly multigravida, second trimester; O09.299 Supervision of pregnancy with other poor reproductive or obstetric history, unspecified trimester; Z3A.00 Weeks of gestation of pregnancy not specified | CPT/HCPCS: 81000 ==

== ENCOUNTER → 2021-04-26 08:35 | Outpatient (BNVA) | payer BC, MEDICAID, SELFPAY | PROVIDERS: Visit Provider Obstetrics & Gynecology | DX: O99.212 Obesity complicating pregnancy, second trimester (principal); O99.332 Smoking (tobacco) complicating pregnancy, second trimester; O21.9 Vomiting of pregnancy, unspecified; Z79.899 Other long term (current) drug therapy; D63.8 Anemia in other chronic diseases classified elsewhere; O09.522 Supervision of elderly multigravida, second trimester; O09.299 Supervision of pregnancy with other poor reproductive or obstetric history, unspecified trimester | CPT/HCPCS: 81000; 82951; 82952; 85025 ==

== ENCOUNTER → 2021-05-04 13:11 | Outpatient (BNVA) | payer BC, MEDICAID, SELFPAY | PROVIDERS: Visit Provider Obstetrics & Gynecology | DX: O99.212 Obesity complicating pregnancy, second trimester (principal); O99.332 Smoking (tobacco) complicating pregnancy, second trimester; O21.9 Vomiting of pregnancy, unspecified; Z79.899 Other long term (current) drug therapy; O09.522 Supervision of elderly multigravida, second trimester; D63.8 Anemia in other chronic diseases classified elsewhere; O09.299 Supervision of pregnancy with other poor reproductive or obstetric history, unspecified trimester | CPT/HCPCS: 81000 ==

== ENCOUNTER → 2021-05-17 15:38 | Outpatient (BNVA) | payer BC, MEDICAID, SELFPAY | PROVIDERS: Visit Provider Obstetrics & Gynecology | DX: O09.899 Supervision of other high risk pregnancies, unspecified trimester (principal); Z3A.00 Weeks of gestation of pregnancy not specified | CPT/HCPCS: 81000 ==

== ENCOUNTER → 2021-05-24 13:50 | Outpatient (BNVA) | payer BC, MEDICAID, SELFPAY | PROVIDERS: Visit Provider Obstetrics & Gynecology | DX: O09.899 Supervision of other high risk pregnancies, unspecified trimester (principal) | CPT/HCPCS: 81000 ==

== ENCOUNTER 2021-05-31 13:34 | Outpatient (CLI) | payer BC, MEDICAID, SELFPAY ==
--- NOTE | 2021-05-31 13:30 | US_ITS ---
WS: [id number] ULTRASOUND OB LIMITED TECHNIQUE: Limited ultrasound examination of the fetus. CLINICAL INFORMATION: O24.419 - Gestational diabetes mellitus in , uns... COMPARISON: May 17, 2021 FINDINGS: Single interuterine gestation. presentation is cephalic Placental location is anterior. Placenta grade: 1 heart rate 150 BPM. WANDER 10.1 cm greater than the 5th percentile and below the median Biophysical profile 6 out of 8. breathing: Not visualized movement: 2 tone: 2 Amniotic fluid: 2 US/US OB F/U w BPP wo NST IMPRESSION: 1. Normal biophysical profile 6 out of 8 2. Closed cervix measuring 3.9 cm 3. WANDER 10.1 cm greater than the 5th percentile and below the median
== END 2021-05-31 13:35 | disposition home or self-care (01) ==
PROVIDERS: Visit Provider Obstetrics & Gynecology
DX: O24.419 Gestational diabetes mellitus in pregnancy, unspecified control (principal)
CPT/HCPCS: 76816; 76819

== ENCOUNTER → 2021-06-01 13:13 | Outpatient (BNVA) | payer BC, MEDICAID, SELFPAY | PROVIDERS: Visit Provider Obstetrics & Gynecology | DX: O24.419 Gestational diabetes mellitus in pregnancy, unspecified control (principal); O40.9XX0 Polyhydramnios, unspecified trimester, not applicable or unspecified; Z3A.00 Weeks of gestation of pregnancy not specified | CPT/HCPCS: 81000 ==

== ENCOUNTER → 2021-06-07 15:28 | Outpatient (BNVA) | payer BC, MEDICAID, SELFPAY | PROVIDERS: Visit Provider Obstetrics & Gynecology | DX: O09.899 Supervision of other high risk pregnancies, unspecified trimester (principal); O24.419 Gestational diabetes mellitus in pregnancy, unspecified control; O40.9XX0 Polyhydramnios, unspecified trimester, not applicable or unspecified; O99.212 Obesity complicating pregnancy, second trimester; O99.332 Smoking (tobacco) complicating pregnancy, second trimester; O21.9 Vomiting of pregnancy, unspecified; Z79.899 Other long term (current) drug therapy; D63.8 Anemia in other chronic diseases classified elsewhere; O09.522 Supervision of elderly multigravida, second trimester; O09.299 Supervision of pregnancy with other poor reproductive or obstetric history, unspecified trimester; Z3A.00 Weeks of gestation of pregnancy not specified; F17.200 Nicotine dependence, unspecified, uncomplicated; E66.9 Obesity, unspecified | CPT/HCPCS: 81000 ==

== ENCOUNTER 2021-06-21 14:05 | Outpatient (CLI) | payer BC, MEDICAID, SELFPAY ==
[2021-06-21 14:31] VITALS: BP 146/82; PULSE 83
[2021-06-21 14:32] VITALS: RESP 18
[2021-06-21 15:35] VITALS: BP 159/73; PULSE 68
[2021-06-21 15:51] VITALS: BP 144/84; PULSE 73
[2021-06-21 15:53] LABS: Basophils % 0.3 %; Eosinophils # 0.1 10^3/uL (0.0-0.8); Hematocrit 31.4 % (37.0-47.0); Hemoglobin 9.2 g/dL (11.5-15.3); Lymphocytes # 1.4 10^3/uL (0.8-4.8); Lymphocytes % 13.3 %; Mean Corpuscular HGB Conc 29.3 g/dL (30.0-36.0); Mean Corpuscular Hemoglobin 22.4 pg (28.0-34.0); Mean Corpuscular Volume 76.4 fl (81-99); Mean Platelet Volume 9.5 fL (7.4-10.4); Monocytes # 0.7 10^3/uL (0.2-0.9); Monocytes % 6.5 %; Neutrophils # 8.28 10^3/uL (1.8-7.7); Nucleated Red Blood Cells # 0.1 /100WBC; Nucleated Red Blood Cells % 0.6 %; Platelet Count 369 10^3/cmm (130-400); Red Blood Count 4.11 10^6/uL (4.1-5.3); Red Cell Distribution Width 22.1 % (12.1-15.1); White Blood Count 10.6 10^3/uL (4.0-10.0)
[2021-06-21 15:59] LABS: Actim Prom Negative
[2021-06-21 16:05] VITALS: BP 138/81; PULSE 73
[2021-06-21 16:29] LABS: Amphetamines Screen Urine Negative (Negative); Barbiturates Screen Urine Negative (Negative); Benzodiazepines Screen Urine Negative (Negative); Cocaine Screen Urine Negative (Negative); Opiate Screen Urine Negative (Negative); PCP Screen Urine Negative (Negative); THC Screen Urine Negative (Negative)
[2021-06-21 16:57] LABS: Nitrazine Paper, PH Negative
== END 2021-06-21 16:10 | disposition home or self-care (01) ==
LOC: OPOB 14:18 → OBGYN 14:18
PROVIDERS: Visit Provider Obstetrics & Gynecology
DX: O26.899 Other specified pregnancy related conditions, unspecified trimester (principal); Z3A.00 Weeks of gestation of pregnancy not specified; N89.8 Other specified noninflammatory disorders of vagina
CPT/HCPCS: 36415; 59025; 80306; 83986; 84112; 85025; 99211

== ENCOUNTER → 2021-06-28 13:41 | Outpatient (BNVA) | payer BC, MEDICAID, SELFPAY | PROVIDERS: Visit Provider Obstetrics & Gynecology | DX: O99.212 Obesity complicating pregnancy, second trimester (principal); O09.899 Supervision of other high risk pregnancies, unspecified trimester; O99.332 Smoking (tobacco) complicating pregnancy, second trimester; O21.9 Vomiting of pregnancy, unspecified; Z79.899 Other long term (current) drug therapy; D63.8 Anemia in other chronic diseases classified elsewhere; O09.522 Supervision of elderly multigravida, second trimester; O09.299 Supervision of pregnancy with other poor reproductive or obstetric history, unspecified trimester; O24.419 Gestational diabetes mellitus in pregnancy, unspecified control | CPT/HCPCS: 81000; 87081 ==

== ENCOUNTER 2021-07-03 03:21 | Outpatient (CLI) | payer BC, MEDICAID, SELFPAY ==
[2021-07-03] VITALS (10 sets, daily range): BP systolic 123–140; BP diastolic 60–78; PULSE 65–76; RESP 16; TEMP 36.3; BMI 47.2
[2021-07-03 04:08] LABS: Amphetamines Screen Urine Negative (Negative); Barbiturates Screen Urine Negative (Negative); Benzodiazepines Screen Urine Negative (Negative); Cocaine Screen Urine Negative (Negative); Opiate Screen Urine Negative (Negative); PCP Screen Urine Negative (Negative); THC Screen Urine Negative (Negative)
== END 2021-07-03 06:25 | disposition home or self-care (01) ==
LOC: OPOB 03:21 → OBGYN 03:22
PROVIDERS: Visit Provider Obstetrics & Gynecology
DX: O26.899 Other specified pregnancy related conditions, unspecified trimester (principal); Z3A.00 Weeks of gestation of pregnancy not specified; R10.9 Unspecified abdominal pain
CPT/HCPCS: 59025; 80306; 99211

== ENCOUNTER 2021-07-03 19:44 | Inpatient (IN) | payer BC, MEDICAID, SELFPAY ==
[2021-07-03] VITALS (51 sets, daily range): BP systolic 129–169; BP diastolic 60–86; PULSE 68–144; RESP 19; TEMP 36.8; O2SAT 90–100; BMI 48.7
[2021-07-03 20:01] LABS: Basophils % 0.2 %; Hematocrit 32.4 % (37.0-47.0); Hemoglobin 9.5 g/dL (11.5-15.3); Lymphocytes # 1.1 10^3/uL (0.8-4.8); Lymphocytes % 6.1 %; Mean Corpuscular HGB Conc 29.3 g/dL (30.0-36.0); Mean Corpuscular Hemoglobin 22.6 pg (28.0-34.0); Mean Platelet Volume 9.6 fL (7.4-10.4); Monocytes % 5.3 %; Neutrophils # 16.22 10^3/uL (1.8-7.7); Neutrophils % 87.5 %; Nucleated Red Blood Cells # 0.1 /100WBC; Nucleated Red Blood Cells % 0.6 %; Platelet Count 338 10^3/cmm (130-400); Red Blood Count 4.21 10^6/uL (4.1-5.3); Red Cell Distribution Width 22.5 % (12.1-15.1); White Blood Count 18.6 10^3/uL (4.0-10.0)
[2021-07-03] MEDS: lactated ringers 1,000 ML 999 ML IV ×2 (20:38→21:42)
--- NOTE | 2021-07-03 21:48 | PM.OPHPUD ---
Labor & Delivery H&P Update Date of Procedure: July 03, 2021 Date H&P Performed: 06/28/21 H&P update information: I have reviewed H&P completed within last 30 days, I have examined patient prior to procedure and Changes to prior documentation as noted here Changes to previous documentation: The patient is having regular, painful contractions. Cervix has changed to /-3 will admit for active labor Admission Diagnosis:
--- NOTE | 2021-07-03 22:10 | ANES.PREANE2 ---
Pre-Anesthetic Assessment Pre-Anesthetic Assessment: Height/Weight: Height 5 ft 4 in Weight 128.82 kg Temp Pulse Resp BP Pulse Ox 98.2 F 88 19 H 126/59 99 07/03/21 19:15 07/04/21 00:19 07/03/21 19:55 07/04/21 00:19 07/04/21 00:09 Preop Diagnosis: IUP Proposed Procedure: labor epidural Was Beta Elizabeth taken within 24 hours: N/A Was Clonidine taken within 24 hours: N/A Social: Social History: Tobacco Exam: Pre-Anes Outpt Exam: alert, oriented x 3, clear to auscultation bilaterally and regular rate & rhythm Airway: Submandibular: WNL Cervical ROM: WNL MP: 2 Dentition: Full History/ROS: No significant history except as noted Pulmonary: Pulmonary: None reported CV/HEM: CV/HEM: HTN : : None reported Hepatic: Hepatic: None reported GI: GI: None reported Metabolic: Metabolic: DM and Morbid obesity Musc/skel: Musc/skel: Lower Back Pain (methadone daily) Neuropsych: Neuropsych: Anxiety Anesthetic Plan: ASA status: 3 Anesthesia: Anesthesia Evaluation and Regional (specify below) Risk of > 500 ml blood loss (7ml/kg in children): No Meds/Allergies Current Medications: Current Medications Generic Name Dose Route Start Last Admin Trade Name Freq PRN Reason Stop Dose Admin Dextrose/Lactated Ringer's 1,000 mls @ 125 m ls/hr 07/03/21 20:00 07/03/21 23:39 Dextrose 5%-Lact ated Ringers IV 125 mls/hr .Q8H KANDACE Administration Ropivacaine 200 mg in 100 mls @ 13 mls/hr 07/03/21 20:00 07/03/21 22:26 Naropin Premix EPIDURAL 13 mls/hr .Q7H42M KANDACE Administration Lactated Ringer's 1,000 mls @ 999 m ls/hr 07/03/21 19:56 07/03/21 21:42 Lactated Ringers IV 999 mls/hr .Q1H1M PRN Administration See label comment s PFSH Anesthesia PFSH: Medical History 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; patient at [facility] Degenerative disc disease No pertinent past medical history neghx: htn,dm,thyroid,dvt/pe PCP: None Rheumatoid arthritis only using otc relievers Surgical History No pertinent past surgical history Family History Father Breast cancer dx age unknown Diabetes Hyperlipidemia Hypertension Stroke Mother Cancer lung cancer Family/Other Family history of thyroid problem paternal aunt Denies family history of Colon cancer Ovarian cancer Heart disease Uterine cancer Thyroid disease Social History Smoking and tobacco status: current every day smoker cigarettes Packs smoked per day: 0.5 Alcohol intake: never Female Reproductive History: : 4 Data Anesthesia CBC & Chem 7: 07/03/21 19:50 07/03/21 21:48 Other Labs: Laboratory Results - last 48 hr 07/03/21 07/03/21 19:50 21:48 WBC 18.6 H RBC 4.21 Hgb 9.5 L Hct 32.4 L MCV 77.0 L MCH 22.6 L MCHC 29.3 L RDW 22.5 H Plt Count 338 MPV 9.6 Neut % (Auto) 87.5 Lymph % (Auto) 6.1 Berks % (Auto) 5.3 Eos % (Auto) 0.0 Baso % (Auto) 0.2 Neut # (Auto) 16.22 H Lymph # (Auto) 1.1 [place] # (Auto) 1.0 H Eos # (Auto) 0.0 Baso # (Auto) 0.0 Nucleated RBC % (auto) 0.6 Nucleated RBCs # 0.1 Sodium 133 L Potassium 3.7 Chloride 99 Carbon Dioxide 22 Anion Gap 15.7 BUN 6 Creatinine 0.5 GFR Calculation 138.8 H Glucose 68 Calculated Osmolality 272 L Uric Acid 5.5 Calcium 8.6 Total Bilirubin 0.3 AST 6 ALT < 5 Alkaline Phosphatase 126 H Total Protein 6.1 L Albumin 2.9 L Globulin 3.2 Cardiac Studies: No Data to Display
[2021-07-03 22:22] LABS: Alanine Aminotransferase < 5 U/L (0-33); Albumin Level 2.9 g/dL (3.5-5.2); Alkaline Phosphatase 126 IU/L (35-105); Anion Gap 15.7 (5-19); Aspartate Amino Transferase 6 U/L (0-32); Blood Urea Nitrogen 6 mg/dL (6-20); Calcium 8.6 mg/dL (8.5-10.5); Carbon Dioxide 22 mmol/L (22-29); Chloride 99 mmol/L (98-107); Globulin 3.2 g/dL (1.3-4.6); Glomerular Filtration Rate 138.8 mL/min (90-130); Glucose 68 mg/dL (65-115); Osmolality Calculated 272 mOsm/kg (285-295); Potassium 3.7 mmol/L (3.5-5.1); Sodium 133 mmol/L (136-145); Total Bilirubin 0.3 mg/dL (0.15-1.2); Total Protein 6.1 g/dL (6.6-8.7); Uric Acid 5.5 mg/dL (2.4-5.7)
--- NOTE | 2021-07-03 22:40 | ANES.PROC ---
Anesthesia Procedures Procedure/Date: 07/04/21 Epidural: Time Out Performed: Yes Consents Signed: Procedure Consent Consent: requested by attending/covering physician Lumbar Level: L3-L4 Epidural position: sitting Epidural procedure: sterile prep of area, 1% lidocaine to numb the area and 18 g needle Other Information: epidural catheter placement attempt x1 patient c/o parasthesia and pain/ removed catheter and attempt x2 at upper level. catheter threaded smoothly, test dose given. pcea started at 13ml/hr.
[2021-07-03] MEDS: dextrose 5%-lactated ringers 1,000 ML 125 ML IV (23:39)
[2021-07-04] VITALS (135 sets, daily range): BP systolic 96–154; BP diastolic 52–77; PULSE 66–162; RESP 16–18; TEMP 36.9–37.4; O2SAT 87–100
--- NOTE | 2021-07-04 00:27 | ANES.PROC ---
Anesthesia Procedures Procedure/Date: 07/04/21 Procedure Narrative: previous epidural pulled, intact. patient not provided relief Epidural: Time Out Performed: Yes Consents Signed: Procedure Consent Consent: requested by attending/covering physician Lumbar Level: L3-L4 Epidural position: sitting Epidural procedure: sterile prep of area, 1% lidocaine to numb the area, 18 g needle, negative for paresthesia passed, neg for paresthesia, test dose given, 1.5% xylocaine 1:200k epi (5ml), placed PCEA, no systemic response, sterile dressing applied, L.U.D. no apparent complications and 0.2% Ropiavacaine @ mls/hr (13) Additional Comments: Fentanyl 100mcg given IVP prior to procedure. 5 inch touy needle used on this insertion without difficulty
[2021-07-04 01:19] LABS: Add Urine Microscopic? YES; Bilirubin Urine Neg (Negative); Blood Urine Neg (Negative); Glucose Urine UA Norm (Normal); Ketones Urine 2+ (Negative); Leukocyte Esterase Urine Negative (Negative); Nitrate Urine Negative (Negative); Protein Urine 1+ (Negative); Specific Gravity, Urine 1.005 (1.005-1.030); Urine Appearance Clear (CLEAR); Urine Color Yellow (Yellow); Urobilinogen Urine 1 mg/dL (Negative); pH Urine 7 (5-7)
[2021-07-04 01:28] LABS: Add Urine Culture? No; Bacteria Urine TRACE /hpf; Mucus Urine TRACE /hpf; RBC Urine 0-4 /hpf (0-2); Squamous Epithelial Cell Urine 0-4 /hpf (0-5); WBC Urine 0-4 /hpf (0-5)
[2021-07-04 01:33] LABS: UPRO/UCREAT Ratio 1.21 mg/mg CR; Urine Creatinine 81 mg/dL (28-217); Urine Protein Random 98 mg/dL
[2021-07-04] MEDS: acetaminophen 325 mg Tablet 650 MG PO (02:55)
[2021-07-04] MEDS: hyDROXYzine 25 mg Capsule 50 MG PO (02:55)
[2021-07-04] MEDS: dextrose 5%-lactated ringers 1,000 ML 125 ML IV (03:54)
[2021-07-04] MEDS: oxytocin 30 UNIT/500 ML BAG IV (04:15)
[2021-07-04] MEDS: saline nasal spray 44mL Btl 1 SPRAY NASAL (04:26)
--- NOTE | 2021-07-04 04:56 | XRR_ITS ---
PROCEDURE INFORMATION: Exam: XR Chest Exam date and time: 07/04/2021 4:56 AM Age: 36 years old Clinical indication: Cough and shortness of breath; Patient HX: Cough with SOB. Requiring non rebreather. ; Additional info: Cough; Shortness of breathe; Refusing covid swab TECHNIQUE: Imaging protocol: XR of the chest. Views: 1 view. COMPARISON: CR XR chest 1V portable [id number] 12/12/2020 10:08 PM FINDINGS: Lungs: Unremarkable. No consolidation. Pleural spaces: Unremarkable. No pleural effusion. No pneumothorax. Heart/Mediastinum: Stable cardiomediastinal silhouette. Bones/joints: Unremarkable. XR/XR chest 1V portable [id number] IMPRESSION: No acute findings. Radiation Dose CTDIVOL = (mGy): DLP = (mGy-cm)
[2021-07-04] MEDS: lidocaine 2% INJ 20 mL INJECTION (07:45)
[2021-07-04] MEDS: miSOPROStol 200 mcg Tablet 800 MCG PR (07:50)
--- NOTE | 2021-07-04 07:55 | P.PCNOB_ITS ---
Delivery Note: Date of delivery: July 04, 2021 Pre-delivery diagnoses: iup at 38 weeks, 1 day. gestational diabetes, active labor Post-delivery diagnoses: same, delivered Procedure: Op report anesthesia: Epidural Estimated blood loss (mL): 75 Pre-Delivery Course: The patient was admitted in active labor. She had arrest of dilation at 5 cm and AROM was performed. It contained thin meconium. The labor stalled again and pitocin was started. She had complete cervical dilation and began pushing Delivery: The patient had complete cervical dilation and began to push. The head delivered in the KHANH position over an intact perineum under epidural anesthesia. The nose and mouth were bulb suctioned. The shoulders and body delivered atraumatically. The baby was placed onto the mother's abdomen. The cord was clamped and cut. Cord blood was obtained. The placenta delivered spontaneously. It was inspected and found to be intact. Inspection of the perineum revealed a small second-degree laceration. This was repaired in the usual fashion. There was uterine atony after delivery. Clots were twice removed from the uterus. Cytotec was placed rectally and TXA was given IV. Estimated blood loss 75 mL. Apgars on baby were 6 at 1 minute and 7 at 5 minutes. Weight of baby is pending. Baby was taken to the warmer for monitoring and additional suctioning. Mother and baby were stable post delivery. A&P Assessment and plan (1) Polyhydramnios affecting : Status: Acute (2) Gestational diabetes: Status: Acute (3) History of macrosomia in in prior , currently : Status: Acute (4) Supervision of other high-risk : Status: Acute (5) Elderly multigravida: Status: Acute Qualifiers: Trimester: second trimester Qualified Code(s): O09.522 - Supervision of elderly multigravida, second trimester (6) Anemia, chronic disease: Status: Acute (7) Long-term use of high-risk medication: Status: Acute (8) Tobacco use in : Status: Acute Qualifiers: Trimester: second trimester Qualified Code(s): O99.332 - Smoking (tobacco) complicating , second trimester (9) Obesity affecting : Status: Acute Qualifiers: Trimester: second trimester Qualified Code(s): O99.212 - Obesity complicating , second trimester Coding Level of Care Code Acute Clinical Tech for Chg Fwd Diagnoses Polyhydramnios affecting O40.9XX0 Gestational diabetes O24.419 History of macrosomia in in prior , currently O09.299 Supervision of other high-risk O09.899 Elderly multigravida O09.522 Trimester: second trimester Anemia, chronic disease D63.8 Long-term use of high-risk medication Z79.899 Tobacco use in O99.332 Trimester: second trimester Obesity affecting O99.212 Trimester: second trimester
[2021-07-04] MEDS: prenatal vitamin Capsule 1 CAP PO (11:48)
[2021-07-04] MEDS: ibuprofen 800 mg tablet PO ×3 (11:48→21:53)
[2021-07-04] MEDS: docusate sodium 100 mg Capsule PO ×2 (11:48→18:18)
[2021-07-04] MEDS: methadone 10 mg Tablet 160 MG PO (12:58)
[2021-07-04] MEDS: methadone 10 mg Tablet 20 MG PO (13:12)
[2021-07-04] MEDS: lanolin oint 7 gm 1 APPLIC TOPICAL (14:12)
[2021-07-04 20:27] LABS: Hemoglobin 9.7 g/dL (11.5-15.3); Mean Corpuscular HGB Conc 29.4 g/dL (30.0-36.0); Mean Corpuscular Hemoglobin 22.7 pg (28.0-34.0); Mean Corpuscular Volume 77.3 fl (81-99); Mean Platelet Volume 9.4 fL (7.4-10.4); Platelet Count 344 10^3/cmm (130-400); Red Blood Count 4.27 10^6/uL (4.1-5.3); White Blood Count 27.3 10^3/uL (4.0-10.0)
[2021-07-05 02:17] VITALS: BP 162/84; PULSE 77
[2021-07-05 06:45] VITALS: BP 194/99; PULSE 69
[2021-07-05 06:58] VITALS: BP 134/68; PULSE 70
[2021-07-05] MEDS: methadone 10 mg Tablet 160 MG PO (08:32)
[2021-07-05] MEDS: docusate sodium 100 mg Capsule PO ×2 (08:32→20:58)
[2021-07-05] MEDS: ibuprofen 800 mg tablet PO ×3 (08:32→20:58)
[2021-07-05] MEDS: prenatal vitamin Capsule 1 CAP PO (08:32)
[2021-07-05 08:42] VITALS: BP 131/71; PULSE 75
--- NOTE | 2021-07-05 11:13 | PM.PN ---
Vitals/I&O/Wt Last Vital Signs Temp 98.7 F 07/04/21 17:45 Pulse 75 07/05/21 08:42 Resp 18 07/04/21 17:45 BP 131/71 07/05/21 08:42 Pulse Ox 97 07/04/21 13:31 07/04/21 07/05/21 07/05/21 22:59 06:59 14:59 Output Total 800 / 1500 Balance -800 / -1493.667 Weight last 48 hrs Weight 284 lb Physical Exam Narrative: EXAM NARRATIVE: The patient is doing well this morning. She has no concerns Const: COMMON NORMALS: no acute distress, patient oriented x3, alert and well nourished GENERAL APPEARANCE: cooperative, comfortable, well kempt, well developed and in distress ORIENTATION/CONSCIOUSNESS: Yes awake, Yes oriented to person, Yes oriented to place and Yes oriented to time Resp: COMMON NORMALS: normal respiratory effort EFFORT & INSPECTION: Yes able to speak in complete sentences GI: COMMON NORMALS: Soft to palpation and non-tender PALPATION: Yes Soft to palpation Extremity: COMMON NORMALS: no calf tenderness Neuro: COMMON NORMALS: patient oriented x3 SENSORIUM/ORIENTATION: Yes alert, Yes oriented to person, Yes oriented to place and Yes oriented to time Psych: APPEARANCE: Yes well kempt Urinary Catheter Management^: Liang: Cath Placed During This Visit: yes, but has since been removed by the nurse Reason for Continuing Indwelling Catheter: Accurate Measurement of Urinary Output in Critically Ill Patients Urinary Catheter Date of Insertion: 07/04/21 Urinary Catheter Time of Insertion: 00:50 Date Urinary Catheter Removed: 07/04/21 Time Urinary Catheter Discontinued: 07:30 Data : 07/04/21 20:05 07/03/21 21:48 Attestations Medical Necessity Statement*: The patient had a vaginal delivery Coding Level of Care Code Acute Taker Off Braker Machine for Rodney Lagunas
[2021-07-05 22:00] VITALS: BP 116/79; PULSE 75; TEMP 36.8; O2SAT 96
[2021-07-06 04:00] VITALS: BP 125/82; PULSE 77; TEMP 36.7; O2SAT 97
[2021-07-06] MEDS: docusate sodium 100 mg Capsule PO (08:18)
[2021-07-06] MEDS: prenatal vitamin Capsule 1 CAP PO (08:18)
[2021-07-06] MEDS: ibuprofen 800 mg tablet PO ×2 (08:18→15:53)
[2021-07-06 11:24] VITALS: PULSE 88; RESP 18; O2SAT 96
--- NOTE | 2021-07-06 12:04 | PM.DCS ---
Discharge Providers Date of Admission: 07/03/21 19:44 Date of Discharge: July 06, 2021 Attending Provider at Admission: Lilliana Antoine MD Attending Provider at Discharge: Lilliana Antoine MD Diagnoses at Discharge Discharge Diagnosis (1) Polyhydramnios affecting : Status: Acute (2) Gestational diabetes: Status: Acute (3) History of macrosomia in infant in prior , currently : Status: Acute (4) Supervision of other high-risk : Status: Acute (5) Elderly multigravida: Status: Acute Qualifiers: Trimester: second trimester Qualified Code(s): O09.522 - Supervision of elderly multigravida, second trimester (6) Anemia, chronic disease: Status: Acute (7) Long-term use of high-risk medication: Status: Acute (8) Tobacco use in : Status: Acute Qualifiers: Trimester: second trimester Qualified Code(s): O99.332 - Smoking (tobacco) complicating , second trimester (9) Obesity affecting : Status: Acute Qualifiers: Trimester: second trimester Qualified Code(s): O99.212 - Obesity complicating , second trimester Reason for Visit Reason for Visit: contractions Hospital Course Hospital Course The patient was admitted for active labor. She had spontaneous delivery of a term . She did well and was ready for discharge on day #2 Physical Exam Const: COMMON NORMALS: no acute distress, patient oriented x3 and alert GENERAL APPEARANCE: cooperative, comfortable, well kempt and well developed ORIENTATION/CONSCIOUSNESS: Yes awake, Yes oriented to person, Yes oriented to place and Yes oriented to time Resp: COMMON NORMALS: normal respiratory effort EFFORT & INSPECTION: Yes able to speak in complete sentences GI: COMMON NORMALS: Soft to palpation and non-tender PALPATION: Yes Soft to palpation Extremity: COMMON NORMALS: no calf tenderness Neuro: COMMON NORMALS: patient oriented x3 SENSORIUM/ORIENTATION: Yes alert, Yes oriented to person, Yes oriented to place and Yes oriented to time Psych: APPEARANCE: Yes well kempt Urinary Catheter Management^: Liang: Cath Placed During This Visit: yes, but has since been removed by the nurse Reason for Continuing Indwelling Catheter: Accurate Measurement of Urinary Output in Critically Ill Patients Urinary Catheter Date of Insertion: 07/04/21 Urinary Catheter Time of Insertion: 00:50 Date Urinary Catheter Removed: 07/04/21 Time Urinary Catheter Discontinued: 07:30 Discharge Data Data Completed and Pending: Completed Studies During Hospitalization Category Date Time Status XR chest 1V collin ble [id number] Routine Exams 07/04/21 04:56 Completed Vitals: Last Vital Signs Temp 98.0 F 07/06/21 04:00 Pulse 88 07/06/21 11:24 Resp 18 07/06/21 11:24 BP 125/82 07/06/21 04:00 Pulse Ox 96 07/06/21 11:24 Discharge Plan Discharge Patient Disposition: Home Condition: Stable Prescriptions: Continued methadone 40 mg tablet,soluble 160 mg PO DAILY RF: 0 Gummy 400 mcg-35 mg -25 mg-5 mg tablet,chewable 1 tab PO DAILY RF: 0 ferrous sulfate 325 mg (65 mg iron) tablet,delayed release (DR/EC) 325 mg PO BID RF: 0 (DME) blood-glucose meter [Blood Glucose Monitoring] Kit See Rx Instructions .Route Qty: 1 RF: 0 (DME) lancets-blood glucose strips 30 gauge combo pack See Rx Instructions .Route Qty: 200 RF: 6 Discharge Orders: Discharge Order (Routine); Ordered 07/06/21 Ordered By: Lilliana Antoine Patient Instructions: Opioid Safety Discharge Attestations Time Spent in Discharge Care*: less than 30 min Quality Metrics Clinical Quality Measures During this hospital stay, did patient experience: None Coding Level of Care Code Acute Chg FW DC note Diagnoses Polyhydramnios affecting O40.9XX0 Gestational diabetes O24.419 History of macrosomia in in prior , currently O09.299 Supervision of other high-risk O09.899 Elderly multigravida O09.522 Trimester: second trimester Anemia, chronic disease D63.8 Long-term use of high-risk medication Z79.899 Tobacco use in O99.332 Trimester: second trimester Obesity affecting O99.212 Trimester: second trimester
[2021-07-06] MEDS: methadone 10 mg Tablet 160 MG PO (13:20)
--- NOTE | 2021-07-06 14:21 | ANE.PACU2 ---
Inpatient post-anesthesia follow up: Airway intact: Yes Vital signs: Temperature 98.0 F Pulse Rate 88 Respiratory Rate 18 Blood Pressure 125/82 Pulse Oximetry 96 Oxygen Delivery Me thod Room Air Oxygen Flow Rate 10 Fraction of Inspir ed Oxygen Hydration adequate: Yes Nausea and vomiting: No Pain level: 2 Mental status: Baseline
[2021-07-06 15:53] VITALS: BP 128/78; PULSE 81; RESP 16; TEMP 36.8; O2SAT 97
[2021-07-06 16:00] VITALS: BP 128/78; PULSE 81; RESP 16; TEMP 36.8; O2SAT 97
--- NOTE | 2021-07-06 16:02 | PC.RESP ---
SMOKING CESSATION INFORMATION SENT TO PATIENT.
== END 2021-07-06 15:55 | disposition home or self-care (01) | DRG 807 ==
LOC: OPOB 07-04 06:14 → OBGYN 07-04 06:14
PROVIDERS: Admitting Provider Obstetrics & Gynecology; Visit Provider Obstetrics & Gynecology
DX: O24.429 Gestational diabetes mellitus in childbirth, unspecified control (principal); Z37.0 Single live birth; Z3A.38 38 weeks gestation of pregnancy; O99.334 Smoking (tobacco) complicating childbirth; F17.210 Nicotine dependence, cigarettes, uncomplicated; O99.892 Other specified diseases and conditions complicating childbirth; M51.26 Other intervertebral disc displacement, lumbar region; M51.36 Other intervertebral disc degeneration, lumbar region; O99.214 Obesity complicating childbirth; E66.01 Morbid (severe) obesity due to excess calories; O99.02 Anemia complicating childbirth; D63.8 Anemia in other chronic diseases classified elsewhere; O77.0 Labor and delivery complicated by meconium in amniotic fluid; O70.1 Second degree perineal laceration during delivery; Z79.891 Long term (current) use of opiate analgesic; Z87.59 Personal history of other complications of pregnancy, childbirth and the puerperium
CPT/HCPCS: 36415; 51702; 59025; 59409; 71045; 80053; 81001; 82570; 84156; 84550; 85025; 85027; 94664; 98960; 99211; J2795; J3010; J3535

== ENCOUNTER 2021-09-09 21:03 | Emergency (ER) | payer BC, MEDICAID, SELFPAY ==
[2021-09-09 23:59] VITALS: BP 149/84; PULSE 70; RESP 18; O2SAT 98; BMI 43.7
--- NOTE | 2021-09-10 03:51 | W.ED.DENTAL ---
HPI - Dental/Oral General: Chief complaint: Dental/Oral Stated complaint: pt wants antibotic for tooth Time Seen by Provider: 09/10/21 03:33 History of Present Illness: HPI Narrative: Patient is a 36-year-old female comes to the ED with dental pain. Patient says she has been having symptoms for the past 5 days. She rates her pain currently about a 5 out of 10 says she has extensive dental decay on teeth on her upper jaw. She is currently contacting her dentist to get an appointment set up with them and they had discussed in the past getting her teeth pulled. Denies any fever, chills, trouble breathing, vomiting. Associated symptoms: Denies fever(s) or odynophagia Review of Systems Const: Denies: fever(s), chills or fatigue Eyes: Denies: change in vision or eye discomfort ENMT: Reports: dental pain; Denies: throat pain, odynophagia, nasal discharge or nasal congestion Card: Denies: chest pain, palpitations, edema, swelling of feet/ankles, dyspnea on exertion or orthopnea Resp: Denies: dyspnea, productive cough or non-productive cough GI: Denies: abdominal pain, nausea, vomiting, diarrhea, constipation or hematochezia : Denies: flank pain, dysuria or hematuria Musc: Denies: neck pain, back pain or extremity swelling Skin/Breast: Denies: rash or new lesions Neuro: Denies: headache(s), numbness in extremities or weakness in extremities PFS ED PFSH: Medical History 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; patient at [facility] Degenerative disc disease No pertinent past medical history neghx: htn,dm,thyroid,dvt/pe PCP: None Rheumatoid arthritis only using otc relievers Surgical History No pertinent past surgical history Family History Father Breast cancer dx age unknown Diabetes Hyperlipidemia Hypertension Stroke Mother Cancer lung cancer Family/Other Family history of thyroid problem paternal aunt Denies family history of Colon cancer Ovarian cancer Heart disease Uterine cancer Thyroid disease Social History Smoking and tobacco status: current every day smoker cigarettes Packs smoked per day: 0.5 Alcohol intake: never Physical Exam Const: COMMON NORMALS: no acute distress, patient oriented x3 and alert GENERAL APPEARANCE: cooperative and comfortable HENMT: COMMON NORMALS: normocephalic HEAD & SCALP: normocephalic MOUTH: Normal oral and palatal mucosa present TEETH & GINGIVA: Yes caries (Extensive dental caries in throughout teeth and upper jaw.), Yes gingiva abnormal (Gingival edema surrounding lips teeth and upper jaw.) edematous and Yes poor dentition THROAT: posterior oropharynx normal and uvula midline Neck/C-Spine: COMMON NORMALS: supple GENERAL: Yes normal visual inspection Resp: COMMON NORMALS: normal respiratory effort, No retractions, No use of accessory muscles and clear to auscultation bilaterally AUSCULTATION: clear to auscultation bilaterally Cardio: COMMON NORMALS: regular rate, regular rhythm, S1 normal heart sound present, S2 normal heart sound present, No gallops present (Cardio), No clicks present (Cardio), No murmurs present (Cardio) and Peripheral pulses 2+ throughout RATE: regular rate RHYTHM: regular rhythm HEART SOUNDS: S1 normal heart sound present and S2 normal heart sound present PERIPHERAL PULSES: Peripheral pulses 2+ throughout GI: COMMON NORMALS: Normal to inspection, nondistended, normoactive bowel sounds present, Soft to palpation, non-tender and no masses PALPATION: Yes Soft to palpation : COMMON NORMALS: Yes no CVA tenderness BLADDER/KIDNEY EXAM: Yes no CVA tenderness Back/Pelvis: COMMON NORMALS: no CVA tenderness Extremity: COMMON NORMALS: normal to inspection Neuro: COMMON NORMALS: patient oriented x3 and moves all extremities SENSORIUM/ORIENTATION: Yes alert Skin: GENERAL SKIN EXAM: dry skin Course Vital Signs: Vital signs: Vital Signs Pulse Rate 70 09/09/21 23:59 Respiratory Rate 18 09/10/21 03:58 Blood Pressure 149/84 09/09/21 23:59 Pulse Oximetry 98 09/09/21 23:59 MDM - Dental/Oral MDM Narrative: Medical decision making narrative: Patient is 36 female comes to the ED with dental pain. Patient has extensive dental caries throughout upper jaw along with associated gingival edema. Vitals stable. Patient is currently calling to get an appointment set up with her dentist for further evaluation of dental pain. She was discharged home with a prescription for cephalexin and ibuprofen. Return to ED precautions given. Patient is to agree with plan Discharge Plan Discharge Patient Disposition: Home Clinical Impression: Pain, dental Condition: Stable Prescriptions: New ibuprofen 800 mg tablet 800 mg PO Q8H PRN (Reason: pain) Qty: 30 RF: 0 cephalexin 500 mg capsule 500 mg PO Q6H 10 Days Qty: 40 RF: 0 No Action methadone 40 mg tablet,soluble 160 mg PO DAILY RF: 0 ibuprofen 200 mg tablet 200 mg PO Q6H PRNRF: 0 Discharge Orders: Discharge ED (Routine); Ordered 09/10/21 Ordered By: Al Kim Discharge Diet: Regular Discharge Activity: Resume usual activity Patient Instructions: Dental Caries (Cavities), Dental Abscess Activity Restrictions/Additional Instructions: Contact dentist and get appointment set up with them to have your dental pain evaluated as soon as possible. Take medications as prescribed. Return to the ER or your medical provider if condition worsens. Please read and understand discharge instructions. Thank you for choosing [facility] for your healthcare needs today. Please realize this is an emergency room and that we are providing you with a medical screening exam and this may not be complete and all inclusive of all the testing and or work up that you may need to determine your ailment or severity of your illness. It is very important that you follow up as instructed or that you return to the Emergency Department should you have concerns or if your condition changes or worsens in any way. Coding Level of Care Code ED Strategic Debriefing Specialist for Rodney Lagunas Exam Comprehensive
[2021-09-10] MEDS: ibuprofen 800 mg tablet PO (03:52)
[2021-09-10] MEDS: cephALEXin 500 mg Capsule PO (03:52)
[2021-09-10 03:58] VITALS: RESP 18
== END 2021-09-10 04:01 | disposition home or self-care (01) ==
PROVIDERS: Emergency Provider Physician Assistant
DX: K02.9 Dental caries, unspecified (principal); K06.1 Gingival enlargement
CPT/HCPCS: 99283

== ENCOUNTER 2022-02-27 02:22 | Emergency (ER) | payer BC, MEDICAID, SELFPAY ==
--- NOTE | 2022-02-27 02:24 | USR_ITS ---
PROCEDURE INFORMATION: Exam: US Duplex Left Lower Extremity Veins, Limited Exam date and time: 02/27/2022 2:39 AM Age: 36 years old Clinical indication: Pain; Swelling (edema) of limb; Lower extremity, left; Leg, upper; Patient HX: PT reports HX of varicose veins. ; Additional info: Left leg pain and swelling TECHNIQUE: Imaging protocol: Real-time Duplex ultrasound of the Left Lower Extremity with 2-D keita scale, color Doppler flow and spectral waveform analysis with image documentation. Limited exam focused on the left lower extremity veins. COMPARISON: No relevant prior studies available. FINDINGS: Evaluated veins include the left common femoral, proximal profunda femoral, proximal/mid/distal superficial femoral, popliteal, posterior tibial, peroneal, and proximal greater saphenous veins. No visible clot in the included deep veins. The included the veins appear normally compressible. Duplex Doppler evaluation demonstrates flow in the evaluated deep veins. Patient apparently reports a palpable area in the posterior distal left thigh. Scanning over this area demonstrates several serpiginous structures that probably represent varicose veins. Some of these presumed varicosities contains internal echoes which may represent partial thrombus. Please correlate clinically for possible thrombophlebitis. US/[place] [id number] IMPRESSION: 1. No evidence of acute left lower extremity deep venous thrombosis. 2. Apparent varicose veins in the distal thigh, see above details/discussion. 3. Other details discussed above.
[2022-02-27 02:27] VITALS: BP 157/88; PULSE 78; RESP 18; TEMP 36.4; O2SAT 98; BMI 46.3
--- NOTE | 2022-02-27 03:20 | ED_ITS ---
HPI - Extremity Problem General: Chief complaint: Extremity Injury, Lower Stated complaint: pt states possible blood clot in L leg Time Seen by Provider: 02/27/22 03:18 History of Present Illness: Ms. Ventura is a 36-year-old lady who presents to the emergency room due to concern over blood clot. She reports onset of symptoms 3 to 4 days ago without trauma or known specific inciting event. She noticed Redness, Warmth, Pain. Symptom intensity is moderate. She does have a history of varicose veins. No shortness of breath worse than baseline asthma. No chest pain. Course has persisted. No other specific changes in health, exacerbating, or alleviating factors identified. 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; patient at [facility] Degenerative disc disease No pertinent past medical history neghx: htn,dm,thyroid,dvt/pe PCP: None Rheumatoid arthritis only using otc relievers Surgical History No pertinent past surgical history Family History Father Breast cancer dx age unknown Diabetes Hyperlipidemia Hypertension Stroke Mother Cancer lung cancer Family/Other Family history of thyroid problem paternal aunt Denies family history of Colon cancer Ovarian cancer Heart disease Uterine cancer Thyroid disease Social History Smoking and tobacco status: current every day smoker cigarettes Packs smoked per day: 0.5 Alcohol intake: never Physical Exam Const: COMMON NORMALS: alert GENERAL APPEARANCE: cooperative and well developed HENMT: COMMON NORMALS: normocephalic and atraumatic HEAD & SCALP: normocephalic and atraumatic Eye: COMMON NORMALS: conjunctivae normal CONJUNCTIVA: Yes conjunctivae normal SCLERA: sclerae normal Neck/C-Spine: COMMON NORMALS: supple GENERAL: Yes trachea midline Resp: COMMON NORMALS: clear to auscultation bilaterally EFFORT & INSPECTION: Yes able to speak in complete sentences AUSCULTATION: clear to auscultation bilaterally Cardio: COMMON NORMALS: regular rate and regular rhythm RATE: regular rate RHYTHM: regular rhythm GI: COMMON NORMALS: Soft to palpation PALPATION: Yes Soft to palpation and No Tenderness to palpation present (GI) PERCUSSION: normal to percussion Extremity: NARRATIVE EXTREMITY EXAM: Localized area of erythema with palpable hard and superficial veins. GENERAL: Yes normal exam except as noted and No edema Neuro: COMMON NORMALS: moves all extremities SENSORIUM/ORIENTATION: Yes alert and No Orientation impaired Psych: COMMON NORMALS: mental status grossly normal and Normal thought process present THOUGHT PROCESS: Normal thought process present Course Vital Signs: Vital signs: Vital Signs Temperature 97.5 F L 02/27/22 02:27 Pulse Rate 73 02/27/22 04:26 Respiratory Rate 16 02/27/22 04:26 Blood Pressure 142/79 02/27/22 04:26 Pulse Oximetry 95 02/27/22 04:26 MDM - Extremity (Nontraumatic) Medical Decision Making 36-year-old lady with history of varicose veins presenting due to leg pain and swelling. Pulses intact without history of claudication. Ultrasound negative for DVT though patient appears to have superficial thrombosis of veins. Given the surrounding erythema we will plan to treat with antibiotics. Strict return precautions given regarding possibility of spread with need for repeat ultrasound if symptoms persist/worsen. Satisfactory for outpatient management. Medical Records I reviewed the patient's medical records. Lab Data I reviewed the patient's lab results. Radiology Impressions Venous Duplex 02/27/22 02:24 IMPRESSION: 1. No evidence of acute left lower extremity deep venous thrombosis. 2. Apparent varicose veins in the distal thigh, see above details/discussion. 3. Other details discussed above. Discharge Plan Discharge Patient Disposition: Home Clinical Impression: Thrombophlebitis Condition: Stable Prescriptions: Discontinued cephalexin 500 mg capsule 500 mg PO Q6H 10 Days Qty: 40 0RF No Action methadone 40 mg tablet,soluble 160 mg PO DAILY 0RF ibuprofen 800 mg tablet 800 mg PO Q8H PRN (Reason: pain) Qty: 30 0RF Discharge Orders: Discharge ED (Routine); Ordered 02/27/22 Ordered By: Parish Reis Discharge Diet: Usual diet Discharge Activity: Increase activity as tolerated Patient Instructions: Superficial Thrombophlebitis (ED) Activity Restrictions/Additional Instructions: Thank you for visiting the emergency department. You were seen and evaluated for leg pain. The exact cause of your symptoms is unclear though likely related to thrombophlebitis with possible partial superficial varicose vein thrombosis. Treatment is compression, elevation, NSAIDs, and I will prescribe antibiotics given localized cellulitis. Please follow-up with your primary care provider. If symptoms worsen you may need repeat ultrasound in 7 to 10 days for evaluation of spread. Return to the emergency department for worsening symptoms or anything else that you are concerned about and feel needs emergency department evaluation. Coding Level of Care Code ED Sumo Wrestler for Rodney Lagunas
[2022-02-27 03:38] VITALS: BP 145/89; PULSE 92; RESP 18; O2SAT 90
[2022-02-27 04:15] VITALS: BP 142/79; PULSE 73; RESP 16; O2SAT 95
[2022-02-27 04:26] VITALS: BP 142/79; PULSE 73; RESP 16; O2SAT 95
== END 2022-02-27 04:19 | disposition home or self-care (01) ==
PROVIDERS: Emergency Provider Emergency Medicine
DX: I80.3 Phlebitis and thrombophlebitis of lower extremities, unspecified (principal); M79.605 Pain in left leg; M79.89 Other specified soft tissue disorders
CPT/HCPCS: 93971; 99283

== ENCOUNTER 2022-07-20 14:53 | Emergency (ER) | payer BC, MEDICAID, SELFPAY ==
[2022-07-20 15:11] VITALS: BP 138/84; PULSE 78; RESP 16; TEMP 36.7; O2SAT 96; BMI 42.0
--- NOTE | 2022-07-20 15:23 | ED_ITS ---
HPI - Dental/Oral General: Chief complaint: Dental/Oral Stated complaint: Tooth Pain Time Seen by Provider: 07/20/22 15:16 History of Present Illness: Patient is a 37-year-old female comes to the ED with dental pain. Symptoms started last night. She has a history of poor oral hygiene and has had most of her teeth pulled. Pain and swelling started in the top back molars. She rates her pain currently a 4 out of 10. She is having swelling in her left maxillary sinus face as well. Denies any other symptoms. She is in the process of getting set up with a dentist. Associated symptoms: Denies fever(s) or odynophagia Review of Systems Const: Denies: fever(s), chills or fatigue Eyes: Denies: change in vision or eye discomfort ENMT: Reports: dental pain; Denies: throat pain, odynophagia, nasal discharge or nasal congestion Card: Denies: chest pain, palpitations, edema, swelling of feet/ankles, dyspnea on exertion or orthopnea Resp: Denies: dyspnea, productive cough or non-productive cough GI: Denies: abdominal pain, nausea, vomiting, diarrhea, constipation or hematochezia : Denies: flank pain, dysuria or hematuria Musc: Denies: neck pain, back pain or extremity swelling Skin/Breast: Denies: rash or new lesions Neuro: Denies: headache(s), numbness in extremities or weakness in extremities [facility] ED PFSH: Medical History 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; patient at [facility] Degenerative disc disease No pertinent past medical history neghx: htn,dm,thyroid,dvt/pe PCP: None Rheumatoid arthritis only using otc relievers Surgical History No pertinent past surgical history Family History Father Breast cancer dx age unknown Diabetes Hyperlipidemia Hypertension Stroke Mother Cancer lung cancer Family/Other Family history of thyroid problem paternal aunt Denies family history of Colon cancer Ovarian cancer Heart disease Uterine cancer Thyroid disease Social History Smoking and tobacco status: current every day smoker cigarettes Packs smoked per day: 0.5 Alcohol intake: never Female Reproductive History: Date of last menstrual period: 06/06/22 Physical Exam Const: COMMON NORMALS: no acute distress, patient oriented x3 and alert HENMT: COMMON NORMALS: normocephalic HEAD & SCALP: normocephalic FACE & SINUS: edema on the left maxilla MOUTH: Normal oral and palatal mucosa present TEETH & GINGIVA: Yes abnormal tooth and associated gingiva (Tooth decay) upper left second molar tender and with associated gingival edema, Yes caries and Yes poor dentition THROAT: posterior oropharynx normal and uvula midline Neck/C-Spine: COMMON NORMALS: supple GENERAL: Yes normal visual inspection Resp: COMMON NORMALS: normal respiratory effort, No retractions, No use of accessory muscles and clear to auscultation bilaterally AUSCULTATION: clear to auscultation bilaterally Cardio: COMMON NORMALS: regular rate, regular rhythm, S1 normal heart sound present, S2 normal heart sound present, No gallops present (Cardio), No clicks present (Cardio), No murmurs present (Cardio) and Peripheral pulses 2+ throughout RATE: regular rate RHYTHM: regular rhythm HEART SOUNDS: S1 normal heart sound present and S2 normal heart sound present PERIPHERAL PULSES: Peripheral pulses 2+ throughout GI: COMMON NORMALS: Normal to inspection, nondistended, normoactive bowel sounds present, Soft to palpation, non-tender and no masses PALPATION: Yes S oft to palpation : COMMON NORMALS: Yes no CVA tenderness BLADDER/KIDNEY EXAM: Yes no CVA tenderness Back/Pelvis: COMMON NORMALS: no CVA tenderness Extremity: COMMON NORMALS: normal to inspection Neuro: COMMON NORMALS: patient oriented x3 SENSORIUM/ORIENTATION: Yes alert GAIT: Yes Normal gait present Skin: GENERAL SKIN EXAM: dry skin Course Vital Signs: Vital signs: Vital Signs Temperature 97.6 F 07/20/22 16:05 Pulse Rate 70 07/20/22 16:05 Respiratory Rate 15 07/20/22 16:05 Blood Pressure 137/85 07/20/22 16:05 Pulse Oximetry 97 07/20/22 16:05 Oxygen Delivery Me thod 07/20/22 15:11 [facility] - Dental/Oral Medical Decision Making Patient is a 37-year-old female comes the ED with dental pain. She has a history of poor oral health. She has extensive dental decay. She has upper left back gingival erythema and edema. She has some left maxillary facial swelling. She was given a dose of IM Decadron to help with some of the swelling. She is diagnosed with dental infection and was discharged home with a prescription for an antibiotic and ibuprofen 800 mg for pain. She was told to follow-up with her dentist as soon as possible to have dental pain evaluated. Discharge Plan Discharge Patient Disposition: Home Clinical Impression: Dental infection Condition: Stable Prescriptions: New cephalexin 500 mg capsule 500 mg PO Q6H 10 Days Qty: 40 0RF ibuprofen 800 mg tablet 800 mg PO Q8H PRN (Reason: pain) Qty: 30 0RF No Action methadone 40 mg tablet,soluble 160 mg PO DAILY cephalexin 500 mg capsule 500 mg PO QID 7 Days Qty: 28 0RF ibuprofen [IBU] 800 mg tablet 800 mg PO Q8H PRN (Reason: pain) Qty: 30 0RF ibuprofen 800 mg tablet 800 mg PO Q8H PRN (Reason: pain) Qty: 30 0RF triamcinolone acetonide 0.025 % ointment 1 applic topical BID Qty: 80 0RF Discharge Orders: Discharge ED (Routine); Ordered 07/20/22 Ordered By: Al Kim Discharge Diet: Regular Discharge Activity: Increase activity as tolerated Patient Instructions: Dental Caries (Cavities), Dental Abscess (ED) Activity Restrictions/Additional Instructions: Follow-up with dentist as soon as possible to have dental pain evaluated. Take medications as prescribed. Return to the ER or your medical provider if condition worsens. Please read and understand discharge instructions. Thank you for choosing [facility] for your healthcare needs today. Please realize this is an emergency room and that we are providing you with a medical screening exam and this may not be complete and all inclusive of all the testing and or work up that you may need to determine your ailment or severity of your illness. It is very important that you follow up as instructed or that you return to the Emergency Department should you have concerns or if your condition changes or worsens in any way. Coding Level of Care Code ED Restuarant Crew Worker for Rodney Lagunas Exam Comprehensive
[2022-07-20] MEDS: dexamethasone 10 mg/mL INJ IM (15:58)
[2022-07-20 16:05] VITALS: BP 137/85; PULSE 70; RESP 15; TEMP 36.4; O2SAT 97
== END 2022-07-20 16:06 | disposition home or self-care (01) ==
PROVIDERS: Emergency Provider Physician Assistant
DX: K04.7 Periapical abscess without sinus (principal); F17.210 Nicotine dependence, cigarettes, uncomplicated
CPT/HCPCS: 96372; 99284; J1100

== ENCOUNTER 2022-07-22 05:02 | Emergency (ER) | payer BC, MEDICAID, SELFPAY ==
[2022-07-22 05:07] VITALS: BP 175/91; PULSE 70; RESP 16; TEMP 36.4; O2SAT 99
--- NOTE | 2022-07-22 05:35 | CTR_ITS ---
PROCEDURE INFORMATION: Exam: CT Maxillofacial With Contrast; Mandible Exam date and time: 07/22/2022 5:55 AM Age: 37 years old Clinical indication: Other: Left facial swelling; Additional info: L dental abscess facial swelling. Maxillary abscess? TECHNIQUE: Imaging protocol: Computed tomography maxillofacial with intravenous contrast. Exam focused on the mandible. Radiation optimization: All CT scans at this facility use at least one of these dose optimization techniques: automated exposure control; mA and/or kV adjustment per patient size (includes targeted exams where dose is matched to clinical indication); or iterative reconstruction. Contrast material: OMNI 350; Contrast volume: 100 ml; Contrast route: INTRAVENOUS (IV); COMPARISON: No relevant prior studies available. RADIATION DOSE METRICS: Total DLP (mGy-cm): 594.85 FINDINGS: Bones/joints: See Dental finding. Paranasal sinuses: Mucosal thickening is seen within the left maxillary sinus and the ethmoidal sinuses bilaterally. Soft tissues: Unremarkable. Dental: Lucencies are seen surrounding the root of tooth 11. There is a defect in the outer lamina the alveolar process with a crescent of low-attenuation material seen adjacent to the maxilla surrounded by a zone of hyperemia, findings compatible with a periodontal abscess. The abscess measures 17.7 mm AP dimension by 8.8 mm in depth and up to 21.9 mm craniocaudal dimension. The abscess extends superiorly to the nasal process of the left maxilla there is a 2nd periodontal abscess that extends from the medial wall of the at alveolar process immediately inferior to the palatine process into the soft tissues of the hard palate measuring 10.7 mm AP dimension by 12.1 mm transverse dimension and 9.[address]/CT facial bones w con [id number] IMPRESSION: There are 2 periodontal abscesses extending from the root pocket tooth 11, 1 extending into the superficial soft tissues adjacent to the left alveolar process and extending superiorly to the nasal process of the left maxilla. The 2nd extends medially into the soft tissues the hard palate on the left as described above.
--- NOTE | 2022-07-22 05:37 | W.ED.DENTAL ---
Documented by User: Case Vogel DO 07/22/22 07:06 HPI - Dental/Oral General: Chief complaint: Dental/Oral Stated complaint: Tooth Ache Time Seen by Provider: 07/22/22 05:19 Source: patient History of Present Illness: 37-year-old female with a history of left dental abscess/infection. She was seen on 07/20. She was given Keflex, and ibuprofen. She notes her pain is a bit better, but the swelling to her face seems to worsen. She denies fever. She is not vomiting. She has had 5 doses of Keflex, and notes that the swelling is no better, and possibly worse. She has allergies to amoxicillin, and an aversion to clindamycin and that it has made her heart race and her throat tight in the past. Onset (ago): day(s) Duration: constant Severity: moderate Relieving factors: NSAIDs Context: history of dental caries and poor dental care Associated symptoms: Reports gum swelling and other (Significant facial swelling with facial induration and fluctuation); Denies fever(s), odynophagia, sore throat or tongue swelling Treatment prior to arrival: none Review of Systems Const: Denies: fever(s) ENMT: Denies: odynophagia Card: Denies: chest pain or palpitations Resp: Denies: dyspnea GI: Denies: abdominal pain, nausea or vomiting Musc: Denies: neck pain Neuro: Reports: headache(s) All/Imm: Denies: tongue swelling [facility] ED PFSH: Medical History 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 Degenerative disc disease No pertinent past medical history neghx: htn,dm,thyroid,dvt/pe PCP: None Rheumatoid arthritis only using otc relievers Surgical History No pertinent past surgical history Family History Father Breast cancer dx age unknown Diabetes Hyperlipidemia Hypertension Stroke Mother Cancer lung cancer Family/Other Family history of thyroid problem paternal aunt Denies family history of Colon cancer Ovarian cancer Heart disease Uterine cancer Thyroid disease Social History Smoking and tobacco status: current every day smoker cigarettes Packs smoked per day: 0.5 Alcohol intake: never Female Reproductive History: Date of last menstrual period: 06/06/22 Physical Exam Const: COMMON NORMALS: no acute distress GENERAL APPEARANCE: cooperative and comfortable HENMT: FACE & SINUS: edema on the left periorbital and maxilla; face not symmetric NOSE: Normal nares present TEETH & GINGIVA: Yes abnormal tooth and associated gingiva, Yes poor dentition and Yes teeth discoloration OTHER: Area of fluctuation over the medial left maxilla. Pointing area over the hard palate posterior to the left lateral incisor and bicuspid. Eye: COMMON NORMALS: Equal, round and reactive pupils present and EOMs intact bilaterally PUPIL: Yes Equal, round and reactive pupils present Chest: CHEST: Yes Symmetrical chest wall rise Resp: COMMON NORMALS: normal respiratory effort, No use of accessory muscles and clear to auscultation bilaterally AUSCULTATION: clear to auscultation bilaterally Cardio: COMMON NORMALS: regular rate and regular rhythm RATE: regular rate RHYTHM: regular rhythm GI: COMMON NORMALS: Normal to inspection, nondistended, normoactive bowel sounds present and Soft to palpation PALPATION: Yes Soft to palpation Extremity: NARRATIVE EXTREMITY EXAM: Atraumatic Neuro: HARESH COMA SCALE: document GCS findings Lopeno coma scale eye opening: Spontaneous Haresh coma scale verbal response: Orientated Haresh coma scale motor response: Obey commands Lopeno coma scale total score: 15 Psych: COMMON NORMALS: mental status grossly normal and cooperative Skin: NARRATIVE SKIN EXAM: Facial swelling as above. Procedures Abscess I/D Site: oral Side (if applicable): left Local Anesthetic: lidocaine 1% and with epi Amount of anesthesia used (mL): 1 Technique: incised with #11 blade Amount of fluid expressed (mL): 5 Irrigation: No Packing used?: none Course Vital Signs: Vital signs: Vital Signs Temperature 97.5 F L 07/22/22 05:07 Pulse Rate 56 L 07/22/22 06:15 Respiratory Rate 16 07/22/22 06:15 Blood Pressure 132/83 07/22/22 06:15 Pulse Oximetry 92 07/22/22 06:15 Oxygen Delivery Me thod 07/22/22 06:15 MDM - Dental/Oral Medical Decision Making Patient has significant periorbital swelling and maxillary swelling with area of fluctuance over maxilla as well as over gum. This is despite 5 doses of antibiotics. She is not vomiting. Due to concerns of facial abscess or deep abscess, she will be sent to CT scan. IV contrast will be used. CT is pending. CT reveals 2 small abscesses, 1 on the palate, 1 over the maxilla. The 1 over the maxilla is a bit deep to incise. The one in the palate incised using a 11 blade after local anesthetic, purulent fluid drained. Swelling is mildly improved to the face. It seems that the 2 fluid collections communicate as when milking the facial abscess, there is some drainage from the palate incision site. She is given a dose of dexamethasone IV, will add metronidazole for anaerobic coverage on top of the Keflex. She will return here or come to urgent care tomorrow for recheck. Lab Data Radiology Impressions Face CT 07/22/22 05:35 IMPRESSION: There are 2 periodontal abscesses extending from the root pocket tooth 11, 1 extending into the superficial soft tissues adjacent to the left alveolar process and extending superiorly to the nasal process of the left maxilla. The 2nd extends medially into the soft tissues the hard palate on the left as described above. Discharge Plan Discharge Patient Disposition: Home Clinical Impression: Dental abscess Condition: Stable Prescriptions: New metronidazole 500 mg tablet 500 mg PO Q8H 7 Days Qty: 21 0RF No Action methadone 40 mg tablet,soluble 160 mg PO DAILY cephalexin 500 mg capsule 500 mg PO QID 7 Days Qty: 28 0RF ibuprofen [IBU] 800 mg tablet 800 mg PO Q8H PRN (Reason: pain) Qty: 30 0RF ibuprofen 800 mg tablet 800 mg PO Q8H PRN (Reason: pain) Qty: 30 0RF triamcinolone acetonide 0.025 % ointment 1 applic topical BID Qty: 80 0RF cephalexin 500 mg capsule 500 mg PO Q6H 10 Days Qty: 40 0RF ibuprofen 800 mg tablet 800 mg PO Q8H PRN (Reason: pain) Qty: 30 0RF Discharge Orders: Discharge ED (Routine); Ordered 07/22/22 Ordered By: Case Vogel Patient Instructions: Dental Abscess (ED), Opioid Safety, Pain Management Activity Restrictions/Additional Instructions: Stay on the antibiotics you were prescribed. Add the prescribed 1 today. Return for fever greater than 100, worsening swelling despite treatment, shortness of breath or trouble breathing, any other concerning symptoms. Salt water gargles for drainage. Return or go to urgent care tomorrow for recheck. 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 Degenerative disc disease No pertinent past medical history neghx: htn,dm,thyroid,dvt/pe PCP: None Rheumatoid arthritis only using otc relievers Surgical History No pertinent past surgical history Family History Father Breast cancer dx age unknown Diabetes Hyperlipidemia Hypertension Stroke Mother Cancer lung cancer Family/Other Family history of thyroid problem paternal aunt Denies family history of Colon cancer Ovarian cancer Heart disease Uterine cancer Thyroid disease Social History Smoking and tobacco status: current every day smoker cigarettes Packs smoked per day: 0.5 Alcohol intake: never Physical Exam Neuro: HARESH COMA SCALE: document GCS findings Lopeno coma scale total score: 15 Course Vital Signs: Vital signs: Vital Signs Temperature 97.5 F L 07/22/22 05:07 Pulse Rate 56 L 07/22/22 06:15 Respiratory Rate 16 07/22/22 06:15 Blood Pressure 132/83 07/22/22 06:15 Pulse Oximetry 92 07/22/22 06:15 Oxygen Delivery Me thod 07/22/22 06:15 MDM - Dental/Oral Medical Decision Making Patient has significant periorbital swelling and maxillary swelling with area of fluctuance over maxilla as well as over gum. This is despite 5 doses of antibiotics. She is not vomiting. Due to concerns of facial abscess or deep abscess, she will be sent to CT scan. IV contrast will be used. CT is pending. CT reveals 2 small abscesses, 1 on the palate, 1 over the maxilla. The 1 over the maxilla is a bit deep to incise. The one in the palate incised using a 11 blade after local anesthetic, purulent fluid drained. Swelling is mildly improved to the face. It seems that the 2 fluid collections communicate as when milking the facial abscess, there is some drainage from the palate incision site. She is given a dose of dexamethasone IV, will add metronidazole for anaerobic coverage on top of the Keflex. She will return here or come to urgent care tomorrow for recheck. Dr. Vogel had signed out this patient at change of shift however at that time several critical patients arrived in the ER I was the oncoming physician so I assumed care of the new patients Dr. Vogel completed care of this patient including incision and drainage of the abscess see his notes I did not participate in the care of this patient other than a brief discussion with him for anticipated signout that did not occur because of the patient flow in the ER. Lab Data Radiology Impressions Face CT 07/22/22 05:35
[2022-07-22] MEDS: iohexol 350 mg/mL 100 mL Btl IV (05:48)
[2022-07-22 06:15] VITALS: BP 132/83; PULSE 56; RESP 16; O2SAT 92
[2022-07-22] MEDS: metroNIDAZOLE 500 MG Tablet PO (07:10)
[2022-07-22] MEDS: dexamethasone 10 mg/mL INJ IVP (07:10)
== END 2022-07-22 07:20 | disposition home or self-care (01) ==
PROVIDERS: Emergency Provider Emergency Medicine
DX: K04.7 Periapical abscess without sinus (principal); K12.2 Cellulitis and abscess of mouth; Z79.891 Long term (current) use of opiate analgesic; F17.210 Nicotine dependence, cigarettes, uncomplicated
CPT/HCPCS: 42000; 70487; 96374; 99285; J1100; Q9967

== ENCOUNTER 2022-10-24 20:27 | Emergency (ER) | payer BC, MEDICAID, SELFPAY ==
[2022-10-24 20:53] VITALS: BP 143/74; PULSE 71; RESP 17; TEMP 36.7; O2SAT 98; BMI 42.9
[2022-10-24 20:58] VITALS: BP 157/86; PULSE 82; RESP 20; O2SAT 94
--- NOTE | 2022-10-24 21:08 | XRR_ITS ---
PROCEDURE INFORMATION: Exam: XR Chest Exam date and time: 10/24/2022 9:23 PM Age: 37 years old Clinical indication: Pain; Chest pressure; Additional info: Cp, SOB 1 hour TECHNIQUE: Imaging protocol: Radiologic exam of the chest. Views: 2 views. COMPARISON: CR XR chest 1V portable [id number] 07/04/2021 5:12 AM FINDINGS: Lungs: Unremarkable. No consolidation. Pleural spaces: Unremarkable. No pleural effusion. No pneumothorax. Heart/Mediastinum: Unremarkable. No cardiomegaly. Bones/joints: Unremarkable. XR/XR chest 2V* [id number] IMPRESSION: No acute findings.
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
[2022-10-24] MEDS: naproxen 500 mg Tablet PO (21:12)
[2022-10-24 22:18] VITALS: BP 152/72; PULSE 69; RESP 18; O2SAT 96
== END 2022-10-24 22:20 | disposition home or self-care (01) ==
PROVIDERS: Emergency Provider Emergency Medicine
DX: S80.01XA Contusion of right knee, initial encounter (principal); V03.10XA Pedestrian on foot injured in collision with car, pick-up truck or van in traffic accident, initial encounter; M25.561 Pain in right knee
CPT/HCPCS: 71046; 73562; 99283

== ENCOUNTER → 2022-12-30 17:37 | Outpatient (BNVA) | payer BC, MEDICAID, SELFPAY | PROVIDERS: Visit Provider Nurse Practitioner | DX: J02.9 Acute pharyngitis, unspecified (principal) | CPT/HCPCS: 87880 ==

== ENCOUNTER 2023-11-26 09:24 | Emergency (ER) | payer SELFPAY ==
[2023-11-26] VITALS (7 sets, daily range): BP systolic 153–179; BP diastolic 99–100; PULSE 59–72; RESP 17–18; TEMP 36.8; O2SAT 81–95; BMI 43.9
--- NOTE | 2023-11-26 09:27 | XRR_ITS ---
PROCEDURE INFORMATION: Exam: XR Chest Exam date and time: 11/26/2023 9:39 AM Age: 38 years old Clinical indication: Cough and dyspnea; Additional info: Dyspnea/cough TECHNIQUE: Imaging protocol: Radiologic exam of the chest. Views: 1 view. COMPARISON: CR XR chest 2V* [id number] 10/24/2022 9:23 PM FINDINGS: Lungs: The lung parenchyma is clear. Pleural spaces: No pneumothorax. No large pleural effusion. Heart/Mediastinum: The cardiomediastinal silhouette is within normal limits. Bones/joints: Unremarkable. XR/XR chest 1V portable [id number] IMPRESSION: No acute cardiopulmonary abnormality.
--- NOTE | 2023-11-26 09:31 | ED_ITS ---
HPI - Nausea/Vomiting/Diarrhea 2 General: Chief complaint: Nausea/Vomiting/Diarrhea Stated complaint: nausea, fever, diarrhea, headache Time Seen by Provider: 11/26/23 09:26 Source: patient Mode of arrival: ambulatory History of Present Illness: 38-year-old female presents emergency ro om with complaint of cough for the last week with nausea couple episodes of vomiting the last few days has began to have a productive cough. Several other family members have been ill. She is a smoker. She denies any hemoptysis subjective low-grade fever at home with myalgias. None of her other family members have tested positive for flu or COVID. 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; patient at [facility] Degenerative disc disease Rheumatoid arthritis only using otc relievers Surgical History No pertinent past surgical history Family History Father Breast cancer dx age unknown Diabetes Hyperlipidemia Hypertension Stroke Mother Cancer lung cancer Family/Other Family history of thyroid problem paternal aunt Denies family history of Colon cancer Ovarian cancer Heart disease Uterine cancer Thyroid disease Social History Smoking and tobacco/nicotine status: current every day tobacco/nicotine user cigarettes Packs smoked per day: 0.5 Alcohol intake: never Substance/Drug Use: never Physical Exam 2 Const: COMMON NORMALS: no acute distress GENERAL APPEARANCE: cooperative and comfortable ORIENTATION/CONSCIOUSNESS: Yes awake, Yes oriented to person, Yes oriented to place and Yes oriented to time HENMT: COMMON NORMALS: normocephalic, atraumatic and hearing grossly normal bilaterally HEAD & SCALP: normocephalic and atraumatic Resp: COMMON NORMALS: normal respiratory effort, No retractions, No use of accessory muscles and clear to auscultation bilaterally AUSCULTATION: clear to auscultation bilaterally Cardio: COMMON NORMALS: regular rate, regular rhythm and No murmurs present (Cardio) RATE: regular rate RHYTHM: regular rhythm GI: COMMON NORMALS: Soft to palpation and No hepatosplenomegaly present A USCULTATION: Yes normoactive bowel sounds PALPATION: Yes Soft to palpation, No Tenderness to palpation present (GI), No Guarding due to palpation present (GI) and Yes No hepatosplenomegaly present Extremity: COMMON NORMALS: normal to inspection, capillary refill normal, no clubbing, cyanosis or edema, no calf tenderness and no pedal edema Neuro: SENSORIUM/ORIENTATION: Yes oriented to person, Yes oriented to place and Yes oriented to time Skin: COMMON NORMALS: no rashes or lesions noted GENERAL SKIN EXAM: no rashes or lesions noted Course 2 Vital Signs: Vital signs: Vital Signs Temperature 98.3 F 11/26/23 09:31 Pulse Rate 59 L 11/26/23 13:00 Respiratory Rate 17 11/26/23 13:15 Blood Pressure 155/100 11/26/23 13:00 Pulse Oximetry 81 L 11/26/23 15:10 Oxygen Delivery Me thod Nasal Cannula 11/26/23 13:00 Oxygen Flow Rate 6 11/26/23 15:10 MDM - Nausea/Vomiting/Diarrhea Medical Decision Making Influenza B with hypoxia. She is not particularly tachycardic she denied having any chest pain. Prior to coming in she had a flulike symptoms and also was very confused weak and dizzy which I think was due to her hypoxia. She has improvement with oxygen supplementation and with nebulizers. We also given her steroids. We tried to titrate her down off the oxygen to see if she had improved enough to be discharged home but she continues to require at least 3 to 4 L of oxygen. We recommended admission she prefers not to because she has to go home and take care of her kids she states if she feels worse she will come back. Since she is refusing admission even after being advised this could lead to worsening of her condition and even . She will be discharged home on steroids Tamiflu doxycycline DuoNebs and oxygen return at any time if she wishes. Medical Records I reviewed the patient's medical records. Lab Data I reviewed the patient's lab results. 11/26/23 10:05 11/26/23 10:05 Radiology Impressions Chest X-Ray 11/26/23 09:27 IMPRESSION: No acute cardiopulmonary abnormality. Laboratory Results WBC 7.92 10^3/uL (3.29-11.43) 11/26/23 10:05 RBC 5.70 10^6/uL (3.85-5.65) H 11/26/23 10:05 Hgb 12.50 g/dL (11.27-16.99) 11/26/23 10:05 Hct 41.8 % (36-47) 11/26/23 10:05 MCV 73.3 fl (85-98) L 11/26/23 10:05 MCH 21.9 pg (27-33) L 11/26/23 10:05 MCHC 29.9 g/dL (30-55) L 11/26/23 10:05 RDW 20.6 % (12.1-15.1) H 11/26/23 10:05 Plt Count 311 10^3/cmm (157-399) 11/26/23 10:05 MPV 9.1 fL (7.4-10.4) 11/26/23 10:05 Lymph % (Auto) Not Reportable 11/26/23 10:05 Dimmit % (Auto) Not Reportable 11/26/23 10:05 Lymph # (Auto) Not Reportable 11/26/23 10:05 [place] # (Auto) Not Reportable 11/26/23 10:05 Total Counted 100 (0-100) 11/26/23 10:05 Atypical Lymphs % 9.0 % (0-5) H 11/26/23 10:05 Absolute Neutrophils 4.7 10^3/cmm (1.4-6.5) 11/26/23 10:05 Segmented Neutrophils 59 % 11/26/23 10:05 Abs Segm Neuts (Man) 4.7 10/cmm (1.6-7.1) 11/26/23 10:05 Band Neutrophils 0.0 % 11/26/23 10:05 Abs Band Neuts (Man) 0.0 10^3/cmm (0.0-1.2) 11/26/23 10:05 Absolute Lymphocytes 2.1 10^3/cmm (1.2-3.4) 11/26/23 10:05 Lymphocytes (Manual) 17 % 11/26/23 10:05 Monocytes (Manual) 4.0 % 11/26/23 10:05 Absolute Monocytes 0.3 10^3/cmm (0.1-0.6) 11/26/23 10:05 Eosinophils (Manual) 3 % 11/26/23 10:05 Absolute Eosinophils 0.2 10^3/cmm (0.0-0.7) 11/26/23 10:05 Basophils (Manual) 0.0 % 11/26/23 10:05 Absolute Basophils 0.0 10^3/cmm (0.0-0.2) 11/26/23 10:05 Metamyelocytes 4.0 % 11/26/23 10:05 Myelocytes 1.0 % 11/26/23 10:05 Nucleated RBCs 3.0 /100WBC (0-1) H 11/26/23 10:05 Platelet Estimate Normal (Normal) 11/26/23 10:05 Giant Platelets Trace 11/26/23 10:05 Polychromasia 1+ H 11/26/23 10:05 Poikilocytosis Trace 11/26/23 10:05 Anisocytosis 2+ H 11/26/23 10:05 Microcytosis Trace 11/26/23 10:05 Specimen Type Arterial 11/26/23 12:40 Sample Site Radial, right 11/26/23 12:40 ABG pH 7.43 (7.35-7.45) 11/26/23 12:40 ABG pCO2 34.6 mmHg (35-45) L 11/26/23 12:40 ABG pO2 50.6 mmHg (80.0-100.0) L 11/26/23 12:40 ABG PO2/FiO2 Ratio 0 11/26/23 12:40 ABG HCO3 23.1 mmol/L (22-26) 11/26/23 12:40 ABG O2 Saturation 87.3 11/26/23 12:40 ABG Base Excess -0.6 mmol/L (-2.0-2.0) 11/26/23 12:40 Juan Test Pos 11/26/23 12:40 A-a O2 Gradient 17.4 mmHg (5-10) H 11/26/23 12:40 Hematocrit 40.1 % (37-47) 11/26/23 12:40 Hgb O2 Saturation 85.3 % (95-100) L 11/26/23 12:40 Carboxyhemoglobin 2.0 %THgb (0.4-20.1) 11/26/23 12:40 Methemoglobin 0.2 % (0.4-1.5) L 11/26/23 12:40 Total Hemoglobin 13.1 g/dL (12-16) 11/26/23 12:40 Sodium 141.0 mmol/L (131-143) 11/26/23 12:40 Potassium 3.9 mmol/L (3.5-5.0) 11/26/23 12:40 Glucose 128.0 mg/dL (70-115) H 11/26/23 12:40 Ionized Calcium 1.2 mmol/L (1.1-1.4) 11/26/23 12:40 O2 Delivery Device Nc 11/26/23 12:40 O2 Liters/Min 3.0 % 11/26/23 12:40 FiO2 32.0 % 11/26/23 12:40 Drawing In Machine Tender Helper ID Lc 11/26/23 12:40 Sodium 138 mmol/L (136-145) 11/26/23 10:05 Potassium 3.7 mmol/L (3.5-5.1) 11/26/23 10:05 Chloride 98 mmol/L (98-107) 11/26/23 10:05 Carbon Dioxide 23 mmol/L (22-29) 11/26/23 10:05 Anion Gap 20.7 (5-19) H 11/26/23 10:05 BUN 9 mg/dL (6-20) 11/26/23 10:05 Creatinine 0.5 mg/dL (0.5-0.9) 11/26/23 10:05 GFR Calculation 137.4 mL/min (90-130) H 11/26/23 10:05 Glucose 146 mg/dL (65-115) H 11/26/23 10:05 Calculated Osmolality 287 mOsm/kg (285-295) 11/26/23 10:05 Calcium 8.5 mg/dL (8.5-10.5) 11/26/23 10:05 Total Bilirubin 0.5 mg/dL (0.15-1.2) 11/26/23 10:05 AST 50 U/L (0-32) H 11/26/23 10:05 ALT 88 U/L (0-33) H 11/26/23 10:05 Alkaline Phosphatase 90 U/L (35-105) 11/26/23 10:05 Total Protein 7.6 g/dL (6.6-8.7) 11/26/23 10:05 Albumin 3.6 g/dL (3.5-5.2) 11/26/23 10:05 Globulin 4.0 g/dL (1.3-4.6) 11/26/23 10:05 HCG, Qual Negative (Negative) 11/26/23 10:05 Urine Color Yellow (Yellow) 11/26/23 09:35 Urine Appearance Clear (CLEAR) 11/26/23 09:35 Urine pH 6.5 (5-7) 11/26/23 09:35 Ur Specific Wilmot 1.005 (1.005-1.030) 11/26/23 09:35 Urine Protein 1+ (Negative) H 11/26/23 09:35 Urine Glucose (UA) Norm (Normal) 11/26/23 09:35 Urine Ketones 3+ (Negative) H 11/26/23 09:35 Urine Blood 2+ (Negative) H 11/26/23 09:35 Urine Nitrate Negative (Negative) 11/26/23 09:35 Urine Bilirubin Neg (Negative) 11/26/23 09:35 Urine Urobilinogen Norm mg/dL (Negative) 11/26/23 09:35 Ur Leukocyte Esterase Negative (Negative) 11/26/23 09:35 Urine RBC 0-4 /hpf (0-2) H 11/26/23 09:35 Urine WBC 0-4 /hpf (0-5) H 11/26/23 09:35 Ur Squamous Epith Cells 0-4 /hpf (0-5) H 11/26/23 09:35 Amorphous Sediment Not Reportable 11/26/23 09:35 Urine Bacteria Trace /hpf (NONE) 11/26/23 09:35 Coronavirus 229E (PCR) Not detected (NOT DETECT) 11/26/23 09:35 Influenza A (H1) PCR Not detected (NOT DETECT) 11/26/23 11:50 Influ A (H1/09) PCR Not detected (NOT DETECT) 11/26/23 11:50 Influenza A (H3) PCR Not detected (NOT DETECT) 11/26/23 11:50 Influenza Type A Ag negative (Negative) 11/26/23 09:35 Influenza Type A (PCR) Not detected (NOT DETECT) 11/26/23 11:50 Influenza Type B Ag negative (Negative) 11/26/23 09:35 Influenza Type B (PCR) Detected (NOT DETECT) A 11/26/23 11:50 SARS-CoV-2 (PCR) Not detected (NOT DETECT) 11/26/23 09:35 All radiology interpretation(s) finalized by discharge Discharge Plan Discharge Patient Disposition: Home Clinical Impression: Acute exacerbation of chronic obstructive pulmonary disease, Influenza B, Respiratory failure Condition: Stable Prescriptions: New ipratropium-albuterol 0.5 mg-3 mg(2.5 mg base)/3 mL solution for nebulization 3 ml inhalation Q4H PRN (Reason: shortness of breath or wheezing) Qty: 90 0RF prednisone 20 mg tablet 20 mg PO TID Qty: 15 0RF Rx Instructions: 1 p.o. 3 times daily x3 days, 1 p.o. twice daily x2 days, 1 p.o. daily x2 days Tamiflu 75 mg capsule 75 mg PO BID 5 Days Qty: 10 0RF doxycycline hyclate 100 mg capsule 100 mg PO BID 10 Days Qty: 20 0RF No Action methadone 40 mg tablet,soluble 160 mg PO DAILY albuterol sulfate [Ventolin HFA] 90 mcg/actuation HFA aerosol inhaler 2 puff inhalation Q6H PRN (Reason: shortness of breath or wheezing) Qty: 8.5 0RF Zofran 4 mg Tablet 4 mg PO Q6H PRN (Reason: Nausea And Vomiting) ibuprofen 200 mg Tablet 800 mg PO Q6H PRN (Reason: Pain) Discharge Orders: Discharge ED (Routine); Ordered 11/26/23 Ordered By: Gómez Patel Other Ambulatory Orders: DME: Nebulizer with Neb Kit (Order) Location: None Selected Ordered By: Gómez Patel DME: Oxygen (Order) Location: None Selected Ordered By: Gómez L Horstman Discharge Diet: Usual diet Discharge Activity: Limit activity as instructed Patient Instructions: Opioid Safety, Pain Management Activity Restrictions/Additional Instructions: Thank you for choosing [facility] for your healthcare needs today. Please realize this is an emergency room and that we are providing you with a medical screening exam and this may not be complete and all inclusive of all the testing and or work up that you may need to determine your ailment or severity of your illness. It is very important that you follow up as instructed or that you return to the Emergency Department should you have concerns or if your condition changes or worsens in any way. You were seen today in the emergency room we were strongly recommended admission due to your hypoxia caused by exacerbation of COPD and influenza B. You were requiring at times up to 3 to 5 L of oxygen to maintain your oxygen saturations in the emergency room. It is extremely ill-advised for you to go home at this point. Your symptoms may worsen up to and including causing . If you have a change of mind you are welcome to return to be reevaluated and admitted. Coding Level of Care Code ED Account Manager for Rodney Lagunas
--- NOTE | 2023-11-26 09:49 | PC.PHAR ---
pt states she takes care of her own medications-pt states she gets 2 week supply of methadone from [facility]-pt states she has been taking an old rx of zofran prn-pt states she does not use flonase that was written on 11/19/23
[2023-11-26 10:01] LABS: Add Urine Culture? No; Add Urine Microscopic? YES; Bacteria Urine TRACE /hpf; Bilirubin Urine Neg (Negative); Blood Urine 2+ (Negative); Glucose Urine UA Norm (Normal); Ketones Urine 3+ (Negative); Leukocyte Esterase Urine Negative (Negative); Nitrate Urine Negative (Negative); Protein Urine 1+ (Negative); RBC Urine 0-4 /hpf (0-2); Specific Gravity, Urine 1.005 (1.005-1.030); Squamous Epithelial Cell Urine 0-4 /hpf (0-5); Urine Appearance Clear (CLEAR); Urine Color Yellow (Yellow); Urobilinogen Urine Norm (Negative); WBC Urine 0-4 /hpf (0-5); pH Urine 6.5 (5-7)
[2023-11-26] MEDS: sodium chloride 0.9% 1,000 ML 999 ML IV (10:08)
[2023-11-26 10:11] LABS: Hematocrit 41.8 % (36-47); Mean Corpuscular HGB Conc 29.9 g/dL (30-55); Mean Corpuscular Hemoglobin 21.9 pg (27-33); Mean Corpuscular Volume 73.3 fl (85-98); Mean Platelet Volume 9.1 fL (7.4-10.4); Platelet Count 311 10^3/cmm (157-399); Red Cell Distribution Width 20.6 % (12.1-15.1); White Blood Count 7.92 10^3/uL (3.29-11.43)
[2023-11-26] MEDS: dexamethasone 10 mg/mL INJ IM (10:11)
[2023-11-26 10:19] LABS: Influenza A by IFA negative (Negative); Influenza B by IFA negative (Negative)
[2023-11-26 10:27] LABS: HCG, Serum Qual Negative (Negative)
[2023-11-26] MEDS: ipratropium-albuterol 3 mL Neb INHALATION (10:28)
[2023-11-26 10:32] LABS: Alanine Aminotransferase 88 U/L (0-33); Albumin Level 3.6 g/dL (3.5-5.2); Alkaline Phosphatase 90 U/L (35-105); Anion Gap 20.7 (5-19); Aspartate Amino Transferase 50 U/L (0-32); Blood Urea Nitrogen 9 mg/dL (6-20); Calcium 8.5 mg/dL (8.5-10.5); Carbon Dioxide 23 mmol/L (22-29); Chloride 98 mmol/L (98-107); Creatinine Clr Calc Pharmacy 189.0322; Glomerular Filtration Rate 137.4 mL/min (90-130); Glucose 146 mg/dL (65-115); Osmolality Calculated 287 mOsm/kg (285-295); Potassium 3.7 mmol/L (3.5-5.1); Slide Review Slide Review Perform; Sodium 138 mmol/L (136-145); Total Bilirubin 0.5 mg/dL (0.15-1.2); Total Protein 7.6 g/dL (6.6-8.7)
[2023-11-26 10:33] LABS: Total Cells Counted 100 (0-100)
[2023-11-26 10:38] LABS: Absolute Eosinophils 0.2 10^3/cmm (0.0-0.7); Absolute Neutrophil 4.7 10^3/cmm (1.4-6.5); Absolute Segmented Neutrophil 4.7 10/cmm (1.6-7.1); Eosinophils 3 %; Giant Platelets Trace; Lymphocytes 17 %; Lymphocytes Absolute 2.1 10^3/cmm (1.2-3.4); Monocytes Absolute 0.3 10^3/cmm (0.1-0.6); Platelet Estimate Normal (Normal); Poikilocytosis Trace; Polychromasia 1+; Segmented Neutrophils 59 %
[2023-11-26 10:39] LABS: Anisocytosis 2+; Microcytosis Trace
[2023-11-26 11:44] LABS: Adenovirus Not Detected (NOT DETECT); Chlamydia Pneumoniae Not Detected (NOT DETECT); Coronavirus 229E,HKU1,NL63,OC4 Not Detected (NOT DETECT); Human Metapneumovirus Not Detected (NOT DETECT); Human Rhinovirus/Enterovirus Not Detected (NOT DETECT); Influenza A Not Detected (NOT DETECT); Influenza A H1 Not Detected (NOT DETECT); Influenza A H1-2009 Not Detected (NOT DETECT); Influenza A H3 Not Detected (NOT DETECT); Influenza B Detected (NOT DETECT); Mycoplasma Pneumoniae Not Detected (NOT DETECT); Parainfluenza Virus Type 1 Not Detected (NOT DETECT); Parainfluenza Virus Type 2 Not Detected (NOT DETECT); Parainfluenza Virus Type 3 Not Detected (NOT DETECT); Parainfluenza Virus Type 4 Not Detected (NOT DETECT); Respiratory Syncytial Virus A Not Detected (NOT DETECT); Respiratory Syncytial Virus B Not Detected (NOT DETECT); SARS-COV-2 Not Detected (NOT DETECT)
[2023-11-26 11:50] LABS: Influenza A Not Detected (NOT DETECT); Influenza A H1 Not Detected (NOT DETECT); Influenza A H1-2009 Not Detected (NOT DETECT); Influenza A H3 Not Detected (NOT DETECT); Influenza B Detected (NOT DETECT); Results from Genmark
[2023-11-26 12:50] LABS: ABG PCO2 34.6 mmHg (35-45); ABG PH Result 7.43 (7.35-7.45); Alveolar-Arterial Oxygen Gradi 17.4 mmHg (5-10); Arterial Blood Gas Hematocrit 40.1 % (37-47); Base Excess ABG -0.6 mmol/L (-2.0-2.0); Blood Gas Allen Test Pos; Blood Gas Operator Identificat LC; Blood Gas Sample Site Radial, right; Blood Gas Sample Type Arterial; HCO3 ABG 23.1 mmol/L (22-26); HGB O2 Sat 85.3 % (95-100); Ionized Calcium Level - ABG 1.2 mmol/L (1.1-1.4); Methemoglobin 0.2 % (0.4-1.5); Oxygen Device NC; Oxygen Saturation ABG 87.3; PO2 ABG 50.6 mmHg (80.0-100.0); PO2 FiO2 Ratio Arterial Blood 0; Potassium Level - ABG 3.9 mmol/L (3.5-5.0); Total Hemoglobin 13.1 g/dL (12-16)
[2023-11-26] MEDS: methadone 10 mg Tablet 160 MG PO (13:15)
== END 2023-11-26 16:22 | disposition home or self-care (01) ==
PROVIDERS: Emergency Provider Family Medicine
DX: J44.1 Chronic obstructive pulmonary disease with (acute) exacerbation (principal); J10.1 Influenza due to other identified influenza virus with other respiratory manifestations; J96.90 Respiratory failure, unspecified, unspecified whether with hypoxia or hypercapnia; Z79.891 Long term (current) use of opiate analgesic; Z11.52 Encounter for screening for COVID-19; F17.210 Nicotine dependence, cigarettes, uncomplicated
CPT/HCPCS: 36600; 71045; 80051; 80053; 81001; 82330; 82805; 84703; 85007; 85025; 87631; 87635; 87804; 94640; 96360; 96361; 96372; 99284; J1100; J7030

== ENCOUNTER 2024-04-18 14:02 | Emergency (ER) | payer SELFPAY ==
[2024-04-18 14:06] VITALS: BP 132/88; PULSE 70; RESP 16; TEMP 36.7; O2SAT 94
--- NOTE | 2024-04-18 14:27 | ED_ITS ---
HPI - Dental/Oral General: Chief complaint: Dental/Oral Stated complaint: tooth pain Time Seen by Provider: 04/18/24 14:11 History of Present Illness: 38-year-old female comes in today with f rontal upper dental pain. Patient has very poor dentition and multiple carious teeth and decay to the gumline's. Patient appears nontoxic. Patient reports finishing a round of cephalexin 5 days ago for cyst treatment of the same infection. Patient is requesting refill of antibiotics as those are best tolerated for her. 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 Degenerative disc disease Rheumatoid arthritis only using otc relievers Surgical History No pertinent past surgical history Family History Father Breast cancer dx age unknown Diabetes Hyperlipidemia Hypertension Stroke Mother Cancer lung cancer Family/Other Family history of thyroid problem paternal aunt Denies family history of Colon cancer Ovarian cancer Heart disease Uterine cancer Thyroid disease Social History Smoking and tobacco/nicotine status: unknown if used tobacco/nicotine Alcohol intake: never Substance/Drug Use: never Female Reproductive History: Date of last menstrual period: 04/07/24 Physical Exam Const: COMMON NORMALS: alert HENMT: TEETH & GINGIVA: Yes abnormal tooth and associated gingiva and Yes poor dentition Resp: COMMON NORMALS: normal respiratory effort Cardio: COMMON NORMALS: regular rate RATE: regular rate GI: COMMON NORMALS: Soft to palpation PALPATION: Yes Soft to palpation Back/Pelvis: COMMON NORMALS: thoracic and lumbar spine normal to inspection Extremity: COMMON NORMALS: full ROM Neuro: SENSORIUM/ORIENTATION: Yes alert Skin: COMMON NORMALS: turgor normal GENERAL SKIN EXAM: turgor normal Course Vital Signs: Vital signs: Vital Signs Temperature 98.1 F 04/18/24 14:06 Pulse Rate 70 04/18/24 14:06 Respiratory Rate 16 04/18/24 14:06 Blood Pressure 132/88 04/18/24 14:06 Pulse Oximetry 94 04/18/24 14:06 [facility] - Dental/Oral Medical Decision Making 38-year-old female comes in today for complaints of dental pain and dental infection. Patient appears nontoxic. Patient appears in no acute distress. Respirations are even lungs are clear to auscultation. Skin is warm and dry. Patient has very poor dentition with significant thickening and granulation of the gums with decay of teeth to the gumline. Patient reports purulent drainage and swelling to the inside of the upper mouth. Differential diagnosis periapical abscess, dental caries, dental pain. Will start patient on cephalexin with recommendations for follow-up with dentist for definitive care. Patient reported understanding and agreed to plan. No radiology studies performed this visit Discharge Plan Discharge Patient Disposition: Home Clinical Impression: Dental abscess, Dental caries Condition: Stable Prescriptions: Continued cephalexin 500 mg capsule 500 mg PO QID 10 Days Qty: 40 0RF No Action methadone 40 mg tablet,soluble 160 mg PO DAILY ibuprofen 800 mg tablet 800 mg PO Q8H PRN (Reason: pain) Qty: 20 0RF Discharge Orders: Discharge ED (Routine); Ordered 04/18/24 Ordered By: Kain Serrano Discharge Diet: Usual diet Discharge Activity: Increase activity as tolerated Patient Instructions: Dental Abscess (ED) Activity Restrictions/Additional Instructions: Follow-up with dentist for definitive care. Take antibiotics as directed. Return to ED for new concerns. Coding Level of Care Code ED Bone Crusher for Rodney Lagunas
[2024-04-18 14:34] VITALS: RESP 16
== END 2024-04-18 14:42 | disposition home or self-care (01) ==
PROVIDERS: Emergency Provider Nurse Practitioner Family
DX: K04.7 Periapical abscess without sinus (principal); K02.9 Dental caries, unspecified
CPT/HCPCS: 99283

== ENCOUNTER 2025-05-18 22:31 | Emergency (ER) | payer MEDICAID, SELFPAY ==
[2025-05-18 22:36] VITALS: BP 143/93; PULSE 84; RESP 16; TEMP 36.8; O2SAT 95; BMI 44.6
--- OUTSIDE RECORDS SUMMARY | 2025-05-18 22:37 | XMS_ITS | Clinical Summary ---
Author Organization [facility] Address [address] [place] [address] Care Team Providers Care Rotoprinter Name Role Phone Unavailable Primary Care Provider Unavailabl e Allergies Active Allergy Reactions Criticality Noted Date Comments Penicillins Rash,Swelling Low 12/18/2009 Medications methadone (DOLOPHINE) 10 mg Oral Tab Take 20 mg by mouth 3 times daily. Active ALBUTEROL INHALATION Take by inhalation 1 time daily as needed. Active Active Problems Problem Noted Date Diagnosed Date Chronic back pain 12/18/2009 Breast hypertrophy 12/18/2009 Family History Medical History Relation Name Comments Breast Cancer Father Diabetes Father High Cholesterol Father Hypertension Father Cancer Maternal Grandfather Asthma Mother Cancer Paternal Grandfather Relation Name Status Comments Father Maternal Grandfather Mother Paternal Grandfather Social History Tobacco Use Types Packs/Day Years Used Date Smoking Tobacco: Every Day Cigarettes 1 12 Alcohol Use Standard Drinks/Week Comments No 0 (1 standard drink = 0.6 oz pur e alcohol) Comments No Sex and Gender Information Value Date Recorded Sex Assigned at Not on file 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 Gender Identity Not on file Sexual Orientation Not on file Last Filed Vital Signs Vital Sign Reading Time Taken Comments Blood Pressure 120/72 12/18/2009 1:58 PM CDT Pulse - - Temperature 37.3 C (99.2 F) 12/18/2009 1:58 PM CDT Respiratory Rate 20 01/16/2010 1:50 PM CDT Oxygen Saturation - - Inhaled Oxygen Concentration - - Weight 125.2 kg (276 lb) 01/16/2010 1:50 PM CDT Height 170.2 cm (5' 7 ) 01/16/2010 1:50 PM CDT Body Mass Index 43.23 01/16/2010 1:50 PM CDT Plan of Treatment Health Maintenance Due Date Last Done Comments DTAP/TDAP/TD VACCINES (1 - Tdap) 2003 HEPATITIS B VACCINES (1 of 3 - 19+ 3-dose series) 05/24 HPV/Cotest (21-29) 2005 HPV VACCINES (1 - 3-dose SCDM series) 2011 CERVICAL CANCER SCREENING 2014 HPV/Cotest (30-65) 2014 PAP SMEAR 2014 BREAST CANCER SCREENING 2024 INFLUENZA VACCINE (#1) 2025
--- OUTSIDE RECORDS SUMMARY | 2025-05-18 22:37 | XMS_ITS | Encounter Summary ---
Author Organization [facility] Address [address] [place] [address] Care Team Providers Care Lumber Mover Name Role Phone Unavailable Primary Care Provider Unavailabl e Encounter Details Date Type Department Care Team (Late st Contact Info) Description 12/12/2004 Emergency 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
--- OUTSIDE RECORDS SUMMARY | 2025-05-18 22:38 | XMS_ITS | Encounter Summary ---
Author Organization [facility] Address 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
--- OUTSIDE RECORDS SUMMARY | 2025-05-18 22:38 | XMS_ITS | Clinical Summary ---
Author Organization [facility] Address [address] Attn: Epic Prelude ADT [place] [address] Care Team Providers Care Jewel Setter Name Role Phone Unavailable Primary Care Provider Unavailabl e Allergies Active Allergy Reactions Criticality Noted Date Comments Penicillins Rash,Swelling Low 12/18/2009 Active Problems Problem Noted Date Diagnosed Date Chronic back pain 12/18/2009 Breast hypertrophy 12/18/2009 Family History Medical History Relation Name Comments Breast Cancer Father Diabetes Father High Cholesterol Father Hypertension Father Cancer Maternal Grandfather Asthma Mother Cancer Paternal Grandfather Relation Name Status Comments Father Maternal Grandfather Mother Paternal Grandfather Social History Tobacco Use Types Packs/Day Years Used Date Smoking Tobacco: Every Day Cigarettes Alcohol Use Standard Drinks/Week Comments No 0 (1 standard drink = 0.6 oz pur e alcohol) Comments Unknown Sex and Gender Information Value Date Recorded Sex Assigned at Not on file 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
--- OUTSIDE RECORDS SUMMARY | 2025-05-18 22:38 | XMS_ITS | Encounter Summary ---
Author Organization [facility] Address [address] [place] [address] Care Team Providers Care It Help Desk Associate Name Role Phone Unavailable Primary Care Provider Unavailabl e Encounter Details Date Type Department Care Team (Late st Contact Info) Description 11/24/2004 Emergency [facility] Emergency Department [address] [place] [id number] Rosaura Mcmillan, NORMA NO ADDRESS ON FILE ISSUE REPEAT PRESCRIPT (Primary Dx) Social History Tobacco Use Types Packs/Day Years Used Date Smoking Tobacco: Never Assessed Comments Unknown Sex and Gender Information Value Date Recorded Sex Assigned at Not on file 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
[2025-05-18 23:45] VITALS: BP 144/88; PULSE 72; O2SAT 96
[2025-05-18 23:54] LABS: Glucose Urine UA Negative (Normal); Nitrate Urine Negative (Negative)
--- NOTE | 2025-05-18 23:54 | ED_ITS ---
HPI - Abdominal Pain 2 General: Chief Complaint: Abdominal Pain Stated Complaint: Lower abd pain Time Seen by Provider: 05/18/25 23:42 Source: patient Mode of arrival: ambulatory Limitations: no limitations History of Present Illness: Patient is a 39-year-old female who presents to ED today with a complaint of right lower quadrant abdominal pain that she began noticing earlier today. She currently states her pain is mild rating it at a 4/10. She feels like pain worsens with movement. She has felt slightly nauseous but has not had any emesis. She is reporting normal bowel movements. She did notice an episode of dark urine earlier today but has otherwise not complained of dysuria, frequency, urgency, hesitancy. She has no back or flank pain. Denies any previous similar symptoms. No previous abdominal surgeries. She has not had any fevers. Vital signs are stable upon arrival. MD elicited complaint: abdominal pain Pertinent past history: none Onset (ago): hour(s) Pain Consistency: constant Location: RLQ Severity: mild Pain scale (0-10): 4 Quality: dull Radiation: none Migration to: no migration Exacerbating factors: movement Relieving factors: nothing Associated Symptoms: Reports nausea; Denies change in bowel habits, chills, diarrhea, dysuria, fever(s) and vomiting Related Data Home Medications ?Medication ?Instructions ?Recorded ?Confirmed methadone 40 mg soluble tablet 160 mg PO DAILY 1 03/05/25 Previous Rx's ?Medication ?Instructions ?Recorded ibuprofen 800 mg tablet 800 mg PO Q8H PRN pain #20 t abs 04/04/24 cephalexin 500 mg capsule 500 mg PO QID 10 days #40 ca ps 03/05/25 Allergies Allergy/AdvReac Type Severity Reaction Status Date / Time Penicillins Allergy rash Verified 05/18/25 22:40 Review of Systems 2 Const: Denies: fever(s), chills, body aches, fatigue or malaise Card: Denies: chest pain Resp: Denies: dyspnea GI: Reports: abdominal pain and nausea; Denies: vomiting, diarrhea or change in bowel habits : Reports: other (episode of dark urine earlier today); Denies: flank pain, difficulty voiding, dysuria, urinary frequency, urinary urgency, urinary hesitancy, vaginal bleeding, irregular period or pelvic pain Musc: Denies: back pain Skin/Breast: Denies: rash Neuro: Denies: dizziness PFSH ED 2 PFSH: Medical History No pertinent past medical history neghx: htn,dm,thyroid,dvt/pe PCP: None 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; patient at [facility] Degenerative disc disease Rheumatoid arthritis only using otc relievers Surgical History No pertinent past surgical history Family History Father Breast cancer dx age unknown Diabetes Hyperlipidemia Hypertension Stroke Mother Cancer lung cancer Family/Other Family history of thyroid problem paternal aunt Denies family history of Colon cancer Ovarian cancer Heart disease Uterine cancer Thyroid disease Social History Smoking and tobacco/nicotine status: never used tobacco/nicotine Alcohol intake: never Substance/Drug Use: never Physical Exam 2 Const: COMMON NORMALS: no acute distress, patient oriented x3, no limitations, alert and well nourished GENERAL APPEARANCE: cooperative NUTRITIONAL APPEARANCE: obese (BMI 44.6) Eye: COMMON NORMALS: no scleral icterus Resp: COMMON NORMALS: normal respiratory effort and clear to auscultation bilaterally AUSCULTATION: clear to auscultation bilaterally Cardio: COMMON NORMALS: regular rate and regular rhythm RATE: regular rate RHYTHM: regular rhythm GI: COMMON NORMALS: Normal to inspection, nondistended, normoactive bowel sounds present, Soft to palpation, No hepatosplenomegaly present and no masses INSPECTION: Yes normal to inspection AUSCULTATION: Yes normoactive bowel sounds PALPATION: Yes Soft to palpation, Yes Tenderness to palpation present (GI) Details: RLQ, No Guarding due to palpation present (GI), No Rigid due to palpation and Yes No hepatosplenomegaly present : COMMON NORMALS: Yes no CVA tenderness BLADDER/KIDNEY EXAM: Yes no CVA tenderness Back/Pelvis: COMMON NORMALS: no CVA tenderness, thoracic and lumbar spine normal to inspection and no thoracic nor lumbar tenderness Extremity: GENERAL: Yes normal exam except as noted Neuro: COMMON NORMALS: patient oriented x3, moves all extremities, no focal motor deficits, no sensory deficits noted and gait normal S ENSORIUM/ORIENTATION: Yes alert Skin: COMMON NORMALS: no rashes or lesions noted GENERAL SKIN EXAM: no rashes or lesions noted Course 2 Vital Signs: Vital signs: Vital Signs Temperature 98.2 F 05/18/25 22:36 Pulse Rate 62 05/19/25 00:52 Respiratory Rate 16 05/18/25 22:36 Blood Pressure 140/81 05/19/25 00:52 Pulse Oximetry 94 05/19/25 00:52 MDM - Abdominal Pain Medical Decision Making Patient's vital signs are stable. She is reporting pain currently is minimal. White count is normal. Her CRP is elevated at 26.8. Discussed potential etiologies including acute appendicitis although I would have a low suspicion for this-could be very early as symptoms just started today. Patient states she is exhausted and would like to go home. She does not want to stay further for CT imaging. We discussed signs and symptoms that should prompt a return evaluation for repeat blood work and possible imaging on that visit. Patient verbalized understanding. Differential Diagnosis Likely abdominal pain and acute appendicitis Medical Records I reviewed the patient's medical records. Lab Data I reviewed the patient's lab results. 05/19/25 00:09 05/19/25 00:09 Labs/Radiology: Laboratory Results WBC 8.75 10^3/uL (3.29-11.43) 05/19/25 00:09 RBC 5.41 10^6/uL (3.85-5.65) 05/19/25 00:09 Hgb 12.30 g/dL (11.27-16.99) 05/19/25 00:09 Hct 41.0 % (36-47) 05/19/25 00:09 MCV 75.8 fl (85-98) L 05/19/25 00:09 MCH 22.7 pg (27-33) L 05/19/25 00:09 MCHC 30.0 g/dL (30-55) 05/19/25 00:09 RDW 17.8 % (12.1-15.1) H 05/19/25 00:09 Plt Count 372 10^3/cmm (157-399) 05/19/25 00:09 MPV 9.9 fL (7.4-10.4) 05/19/25 00:09 Neut % (Auto) 65.1 % 05/19/25 00:09 Lymph % (Auto) 23.5 % 05/19/25 00:09 [place] % (Auto) 6.5 % 05/19/25 00:09 Eos % (Auto) 4.1 % 05/19/25 00:09 Baso % (Auto) 0.6 % 05/19/25 00:09 Neut # (Auto) 5.69 10^3/uL (1.8-7.7) 05/19/25 00:09 Lymph # (Auto) 2.1 10^3/uL (0.8-4.8) 05/19/25 00:09 [place] # (Auto) 0.6 10^3/uL (0.2-0.9) 05/19/25 00:09 Eos # (Auto) 0.4 10^3/uL (0.0-0.8) 05/19/25 00:09 Baso # (Auto) 0.1 10^3/uL (0.0-0.1) 05/19/25 00:09 Nucleated RBC % (auto) 0 % 05/19/25 00:09 Nucleated RBCs # 0.0 /100WBC 05/19/25 00:09 Sodium 135 mmol/L (136-145) L 05/19/25 00:09 Potassium 4.0 mmol/L (3.5-5.1) 05/19/25 00:09 Chloride 96 mmol/L (98-107) L 05/19/25 00:09 Carbon Dioxide 29 mmol/L (22-29) 05/19/25 00:09 Anion Gap 14.0 (5-19) 05/19/25 00:09 BUN 8 mg/dL (6-20) 05/19/25 00:09 Creatinine 0.7 mg/dL (0.5-0.9) 05/19/25 00:09 GFR Calculation 92.7 mL/min (90-130) 05/19/25 00:09 Glucose 213 mg/dL (65-115) H 05/19/25 00:09 Calculated Osmolality 285 mOsm/kg (285-295) 05/19/25 00:09 Calcium 9.4 mg/dL (8.5-10.5) 05/19/25 00:09 Total Bilirubin 0.3 mg/dL (0.15-1.2) 05/19/25 00:09 AST 43 U/L (0-32) H 05/19/25 00:09 ALT 45 U/L (0-33) H 05/19/25 00:09 Alkaline Phosphatase 110 U/L (35-105) H 05/19/25 00:09 C-Reactive Protein 26.8 mg/L (0.0-4.9) H 05/19/25 00:09 Total Protein 7.5 g/dL (6.6-8.7) 05/19/25 00:09 Albumin 3.8 g/dL (3.5-5.2) 05/19/25 00:09 Globulin 3.7 g/dL (1.3-4.6) 05/19/25 00:09 Lipase 41 U/L (13-60) 05/19/25 00:09 HCG, Qual Negative (Negative) 05/19/25 00:09 Urine Color Dark yellow (Yellow) A 05/18/25 22:45 Urine Appearance Clear (CLEAR) 05/18/25 22:45 Urine pH 5.0 (5-7) 05/18/25 22:45 Ur Specific [place] 1.034 (1.005-1.030) H 05/18/25 22:45 Urine Protein 1+ (Negative) A 05/18/25 22:45 Urine Glucose (UA) Negative (Normal) 05/18/25 22:45 Urine Ketones Trace (Negative) 05/18/25 22:45 Urine Blood Negative (Negative) 05/18/25 22:45 Urine Nitrate Negative (Negative) 05/18/25 22:45 Urine Bilirubin Negative (Negative) 05/18/25 22:45 Urine Urobilinogen 1.0 mg/dL (Negative) 05/18/25 22:45 Ur Leukocyte Esterase Negative (Negative) 05/18/25 22:45 Urine RBC 3-5 /hpf (0-2) 05/18/25 22:45 Urine WBC 6-10 /hpf (0-5) 05/18/25 22:45 Ur Squamous Epith Cells 6-10 /hpf (0-5) 05/18/25 22:45 Amorphous Sediment Not Reportable 05/18/25 22:45 Urine Bacteria 2+ /hpf (NONE) H 05/18/25 22:45 Hyaline Casts 4.11 /lpf 05/18/25 22:45 No radiology studies performed this visit Discharge Plan Discharge Patient Disposition: Home Clinical Impression: Abdominal pain, acute, right lower quadrant Condition: Stable Prescriptions: No Action methadone 40 mg tablet,soluble 160 mg PO DAILY ibuprofen 800 mg tablet 800 mg PO Q8H PRN (Reason: pain) Qty: 20 0RF cephalexin 500 mg capsule 500 mg PO QID 10 Days Qty: 40 0RF Discharge Orders: Discharge ED (Routine); Ordered 05/19/25 Ordered By: Winsome Fuchs Patient Instructions: Abdominal Pain (ED), Patient Portal & [facility] Instructions Activity Restrictions/Additional Instructions: As we discussed, blood work your showed a normal white count. Your chemistry was unremarkable apart from mildly elevated liver enzymes. These can continue to be monitored through primary care. You did have mild elevation to your CRP which is the inflammatory lab we spoke about. At this time you wanted to defer CT imaging and monitor symptoms closely at home which I feel is reasonable. We discussed returning to the emergency department for worsening or severe abdominal pain, repetitive episodes of vomiting, fevers, generally feeling worse or unwell, or any other concerns you may have. At that visit we would most likely repeat blood work for comparison and potentially obtain CT imaging at that time. Print Language: Kiswahili Coding Level of Care Code ED Tension Machine Operator for Rodney Lagunas
[2025-05-18 23:59] LABS: Add Urine Microscopic? YES
[2025-05-19 00:11] LABS: Specific Gravity, Urine 1.034 (1.005-1.030); UA Slide Review UA Slide Review Perf
[2025-05-19 00:23] VITALS: BP 160/100; PULSE 66; O2SAT 94
[2025-05-19 00:31] LABS: Hematocrit 41.0 % (36-47); Hemoglobin 12.30 g/dL (11.27-16.99); Mean Corpuscular HGB Conc 30.0 g/dL (30-55); Mean Corpuscular Hemoglobin 22.7 pg (27-33); Mean Corpuscular Volume 75.8 fl (85-98); Nucleated Red Blood Cells % 0 %; Platelet Count 372 10^3/cmm (157-399); Red Blood Count 5.41 10^6/uL (3.85-5.65); White Blood Count 8.75 10^3/uL (3.29-11.43)
[2025-05-19 00:42] LABS: HCG, Serum Qual Negative (Negative)
[2025-05-19 00:50] LABS: Alanine Aminotransferase 45 U/L (0-33); Albumin Level 3.8 g/dL (3.5-5.2); Alkaline Phosphatase 110 U/L (35-105); Anion Gap 14.0 (5-19); Aspartate Amino Transferase 43 U/L (0-32); Blood Urea Nitrogen 8 mg/dL (6-20); Calcium 9.4 mg/dL (8.5-10.5); Carbon Dioxide 29 mmol/L (22-29); Chloride 96 mmol/L (98-107); Creatinine Clr Calc Pharmacy 134.9098; Globulin 3.7 g/dL (1.3-4.6); Glucose 213 mg/dL (65-115); Lipase 41 U/L (13-60); Osmolality Calculated 285 mOsm/kg (285-295); Potassium 4.0 mmol/L (3.5-5.1); Sodium 135 mmol/L (136-145); Total Protein 7.5 g/dL (6.6-8.7)
[2025-05-19 00:52] VITALS: BP 140/81; PULSE 62; O2SAT 94
[2025-05-19 01:15] VITALS: BP 150/89; PULSE 78; O2SAT 97
== END 2025-05-19 01:17 | disposition home or self-care (01) ==
PROVIDERS: Emergency Provider Physician Assistant
DX: R10.31 Right lower quadrant pain (principal)
CPT/HCPCS: 36415; 80053; 81001; 83690; 84703; 85025; 86140; 99283